=== PATIENT | male | born 1965 | race Hispanic/Latino ===

== ENCOUNTER 2018-05-17 14:14 | Inpatient (IN) | payer SELFPAY ==
[2018-05-17] MEDS ORDERED: fentaNYL Citrate/PF 2,000 MCG in Sodium Chloride 0.9% 60 ML IV SCH (14:26)
[2018-05-17] MEDS ORDERED: cefTRIAXone\\ROCEPHIN 1 GM VIAL ONE (14:30)
[2018-05-17] MEDS ORDERED: Pantoprazole 40 MG VIAL ONE (14:30)
[2018-05-17] MEDS ORDERED: Octreotide Acetate 50 MCG/ML AMP ONE (14:30)
[2018-05-17] MEDS ORDERED: Octreotide Acetate 1,250 MCG in Sodium Chloride 0.9% 250 ML 250 ML IVPB SCH (14:45)
[2018-05-17] MEDS ORDERED: Fentanyl 100 MCG/2 ML VIAL ONE (14:48)
[2018-05-17 15:25] LABS: Bilirubin Small (Negative); Blood, Urine Moderate (Negative); Clarity CLEAR (Clear); Glucose, Urine (Dipstick) Negative (Negative); Leukocyte Small (Negative); Nitrite Negative (Negative); Protein, Urine (Dipstick) 30 mg/dL (Neg-Trace); Specific Gravity, Urine 1.034 (1.002-1.036)
[2018-05-17 15:27] LABS: Actual Bicarbonate (HCO3a) 18.2 mEq/L (22-28); Analyzer IN Cardio ER; Base Excess (BEa) -5.4 mEq/L (-2.0 to +3.0); CO2 Tension 30.3 mmHg (35.0-45.0); Calcium, Ionized 1.09 mmol/L (1.12-1.30); Carboxyhemoglobin (COHb) 0.3 gm% (0.0-3.0); Hemoglobin (Hb) 13.8 g/dL (14.0-18.0); O2 Tension (PaO2) 111.1 mmHg (80.0-100.0); Potassium - ABG Lab 5.95 mmol/L (3.70-5.30)
[2018-05-17 15:28] LABS: Bacteria/HPF None Seen HPF (None Seen); Pathc Cast-AUWi Flag 1.16 (0-2.49); RBC/HPF GREATER THAN 50-TNTC HPF (0-3); Squamous Epithelial 0-3 HPF (0-3); WBC/HPF 0-3 HPF (0-3)
[2018-05-17 15:28] LABS: Puncture Site B
[2018-05-17 15:30] LABS: ALV-art Gradient 207.525 (0-20)
[2018-05-17 15:38] LABS: Crystals/HPF 2+ CA OXALATE HPF (Negative); Hyaline Casts/LPF 0-3 HYALINE CAST LPF (0-3 Hyaline)
[2018-05-17 15:43] LABS: INR-International Normal Ratio 1.5; PTT 35.1 SEC (22.9-36.1); Prothrombin Time 18.6 SEC (12.0-14.7)
[2018-05-17 15:50] LABS: ALT (SGPT) 42 U/L (8-55); AST (SGOT) 83 U/L (5-34); Albumin 2.4 g/dL (3.5-5.0); Alkaline Phosphatase 141 U/L (40-150); Anion Gap 15 mmol/L (10-20); BUN (Urea Nitrogen) 19 mg/dL (8.4-25.7); CK (CPK) 1249 U/L (30-200); Calc. Creatinine Clearance 0 mL/min (70-130); Calcium 8.2 mg/dL (7.8-10.44); Carbon Dioxide 16 mmol/L (22-29); Chloride 112 mmol/L (98-107); Estimated GFR-MDRD 82; Glucose 113 mg/dL (70-105); Lipase 38 U/L (8-78); Potassium 6.2 mmol/L (3.5-5.1); Protein, Total 6.4 g/dL (6.0-8.3); Sodium 137 mmol/L (136-145)
[2018-05-17 15:51] LABS: Acetaminophen Less than 6.0 mcg/mL (10.0-30.0); Alcohol Less than 10 mg/dL (Less than 10); Salicylate Less than 8.0 mg/dL (15.0-30.0)
[2018-05-17 15:54] LABS: #Lymphocytes 0.3 thou/uL (1.20-3.40); #Monocytes 0.6 thou/uL (0.11-0.59); #Neutrophils 3.9 thou/uL (1.40-6.50); %Basophils 0.4 % (0.0-1.0); %Eosinophils 0.5 % (0.0-10.0); %Lymphocytes 6.8 % (21.0-51.0); %Monocytes 11.3 % (0.0-10.0); Hemoglobin 13.4 g/dL (14.0-18.0); MDiff Complete? YES; Mean Corpuscular HGB CONC 34.4 g/dL (32.0-36.0); Mean Corpuscular Hemoglobin 33.5 pg (27.0-31.0); Mean Corpuscular Volume 97.3 fL (78.0-98.0); Mean Platelet Volume 8.3 fL (7.4-10.4); Ovalocytes SLIGHT = 2-5 cells (100X) (0-1/hpf); Platelet Count 49 thou/uL (130-400); Platelet Morphology Comment Appears Decreased; Polychromasia SLIGHT = 2-3 cells (100X) (0-2/hpf); RBC Distribution Width 13.6 % (11.5-14.5); Red Blood Cell (RBC) Count 4.01 mill/uL (4.70-6.10); Tear Drops SLIGHT = 2-5 cells (100X) (0-1/hpf); White Blood Cell (WBC) Count 4.8 thou/uL (4.8-10.8)
[2018-05-17] MEDS ORDERED: Calcium Chloride 1 GM/10 ML Abboject SYRINGE ONE (16:10)
[2018-05-17] MEDS ORDERED: Insulin Regular 300 UNITS/3 ML VIAL ONE (16:10)
[2018-05-17] MEDS ORDERED: Sodium Bicarb 50 MEQ/50 ML VIAL ONE ×2 (16:10→16:42)
[2018-05-17] MEDS ORDERED: Dextrose 50% Abboject 50 ML SYRINGE ONE (16:10)
--- NOTE | 2018-05-17 16:10 | RAD ---
PORTABLE AP CHEST RADIOGRAPH: Date: 05-17-18 History: Post intubation. Comparison: 05-17-18 at 11:39 a.m. FINDINGS: Endotracheal tube has been withdrawn, previously overlying the right mainstem bronchus and now overli es T4-5 level and above the level of the rigo. Nasogastric tube is again noted in place which cours es into the left upper quadrant but the tip is not imaged. Pleural and parenchymal changes are seen at the left lung base. There is suboptimal evaluation of the left lung base due to the large cardiac silhouette and portable technique. Findings could be related to left pleural effusion or atelectasis but pneumonia in the left lung base cannot be excluded. The right lung is clear. No other interval change. IMPRESSION: 1. Interval repositioning of the endotracheal tube which is now above the level of the rigo. 2. Pleural and parenchymal changes left lung base could be related to small left pleural effusion and atelectasis, but pneumonia at the left lung cannot be entirely excluded. POS: [facility]
[2018-05-17] MEDS ORDERED: Sodium Bicarb 50 MEQ/50 ML Abboject 8.4% SYRINGE ONE (16:42)
--- NOTE | 2018-05-17 17:14 | CON ---
DATE OF CONSULTATION: 05/17/2018 REASON FOR CONSULTATION: Hyperkalemia. HISTORY OF PRESENT ILLNESS: This is a very pleasant 52-year-old gentleman who presented to the hospital with altered mental status and syncope. The patient was noted to have a potassium of 6.2, and a stat consult was obtained. The patient has history of liver failure and BPH. PAST MEDICAL HISTORY: Liver failure and BPH. SOCIAL HISTORY: Unavailable. ALLERGIES: UNAVAILABLE. REVIEW OF SYSTEMS: Unavailable. PHYSICAL EXAMINATION: GENERAL: The patient is comatose. VITAL SIGNS: Afebrile, pulse 70, breathing 16, blood pressure 130/70. GENERAL APPEARANCE AND MENTAL STATUS: Fair. HEAD/NECK: Normocephalic. Atraumatic. EYES: EOMI. No deformity. EARS: Clear. No ulcers. NOSE: Intact. No lesions. MOUTH: Clear. No discharge. THROAT: Clear. No exudate. LUNGS: Clear. No crackles. CARDIAC: S1, S2. No rub. ABDOMEN: Benign. Bowel sounds positive. GENITALIA/RECTUM: Jiang absent. BACK/EXTREMITIES: Edema 0+. NEUROLOGICAL: Alert and motor intact. SKIN: LYMPHATICS: LABORATORY DATA: Labs show potassium of 6. ASSESSMENT AND PLAN: Chronic kidney disease stage 6 with multiorgan failure and acidosis. Plan bicarbonate. Anemia, stable. Medications based on glomerular filtration rate. Liver failure. Overall prognosis is poor. Job ID: [id number]
[2018-05-17 17:37] LABS: Amphetamine Not Detected (NotDetected); Barbiturates Screen Not Detected (NotDetected); Benzodiazepine Screen Not Detected (NotDetected); Cocaine Metabolite Screen Not Detected (NotDetected); Medtox Control Line Valid? VALID (VALID); Medtox Reader # READER 1; Methadone Not Detected (NotDetected); Methamphetamine Not Detected (NotDetected); Opiate Screen Not Detected (NotDetected); Oxycodone Screen Not Detected (NotDetected); Phencyclidine (PCP) Not Detected (NotDetected); THC/Cannabinoid Screen Not Detected (NotDetected); Tricyclic Screen Not Detected (NotDetected)
[2018-05-17 17:53] LABS: Anion Gap 11 mmol/L (10-20); BUN (Urea Nitrogen) 19 mg/dL (8.4-25.7); Calc. Creatinine Clearance 0 mL/min (70-130); Calcium 8.6 mg/dL (7.8-10.44); Carbon Dioxide 24 mmol/L (22-29); Chloride 113 mmol/L (98-107); Estimated GFR-MDRD Greater than 90; Glucose 123 mg/dL (70-105); Potassium 4.4 mmol/L (3.5-5.1); Sodium 144 mmol/L (136-145)
--- NOTE | 2018-05-17 18:12 | RAD ---
PORTABLE AP CHEST RADIOGRAPH: Date: 05-17-18 History: Central line insertion. Intubated. Comparison: 05-17-18 FINDINGS: Endotracheal tube and nasogastric tubes remain in place. A right internal jugular vein central venous catheter is noted in place with the tip overlying the expected location of the right atrium. No pneu mothorax is seen. There is suboptimal evaluation of the left lung base, but there is suggestion of pl eural and parenchymal changes at the left lung base which may be related to pleural effusion and atel ectasis. Right lung is clear. No other interval change. IMPRESSION: 1. Lines and tubes in place as described above. 2. Suboptimal evaluation of the left lung base. Recent CT. also obtained on 05-17-18. did not demons trate significant amount of pleural fluid at the left lung base, and findings at left lung base are l ikely related to atelectasis. POS: [facility]
[2018-05-17 18:43] VITALS: BMI 30.3
[2018-05-17] MEDS ORDERED: Ondansetron PF 4 MG/2 ML Vial IVP PRN (19:12)
[2018-05-17] MEDS ORDERED: Ondansetron ODT 4 MG TAB PO PRN (19:12)
[2018-05-17] MEDS ORDERED: Acetaminophen 650 MG Suppository PR PRN (19:12)
[2018-05-17] MEDS ORDERED: CCU Electrolyte Replacement 1 EACH FS ONE (19:13)
[2018-05-17] MEDS ORDERED: Ventilator Sedation Protocol 1 EACH FS ONE (19:13)
[2018-05-17] MEDS ORDERED: Propofol BOLUS 1,000 MG/100 ML VIAL IV PRN (19:16)
[2018-05-17] MEDS ORDERED: DISCONTINUE PREVIOUS NARCOTIC PAIN MEDICATIONS AND BENZODIAZEPINES FS SCH (19:16)
[2018-05-17] MEDS ORDERED: CCU ELECTROLYTE REPLACEMENT PROTOCOL FS PRN (19:16)
[2018-05-17] MEDS ORDERED: Potassium Phosphate 12 MMOL in Sodium Chloride 0.9% 250 ML 250 ML IV PRN (19:16)
[2018-05-17] MEDS ORDERED: Potassium Chloride 20 MEQ TAB PO PRN (19:16)
[2018-05-17] MEDS ORDERED: Magnesium Oxide 400 MG TAB PO PRN ×2 (19:16)
[2018-05-17] MEDS ORDERED: Potassium Phosphate 15 MMOL in Sodium Chloride 0.9% 250 ML 250 ML IV PRN (19:16)
[2018-05-17] MEDS ORDERED: Fentanyl BOLUS 250 ML IVPB PRN (19:16)
[2018-05-17] MEDS ORDERED: Magnesium 2 GM/NS 0.9% 100 ML 2 GM in Premix Bag 1 BAG IVPB PRN (19:16)
[2018-05-17] MEDS ORDERED: Potassium Chloride 40 MEQ in Sodium Chloride 0.9% 250 ML 250 ML IVPB PRN (19:16)
[2018-05-17] MEDS ORDERED: Propofol 1,000 MG/100 ML VIAL IV PRN (19:16)
[2018-05-17] MEDS ORDERED: Morphine 2 MG/ML SYRINGE SLOW IVP PRN (19:16)
[2018-05-17] MEDS ORDERED: Famotidine/PF 20 mg/2ml Vial SLOW IVP SCH (21:00)
[2018-05-17] MEDS: Sodium Chloride 0.9% 1,000 ML IV SCH (21:52)
--- NOTE | 2018-05-17 21:53 | HP ---
PRIMARY CARE PROVIDER: City call. CHIEF COMPLAINT: Altered mental status. HISTORY OF PRESENT ILLNESS: This is a 52-year-old male who presented to [facility] Emergency Department in transfer from the [place] [facility] after apparently presenting by EMS after family noted the patient altered and acting "weird." History was obtained after review of the [place] [facility] records as well as emergency room records from [facility] as the patient is currently on mechanical ventilation and obtunded. Family apparently reported that the patient was acting strange and has a history of cirrhosis. The patient was unable to be awakened in the photography instructor hours on 05/17/2018 at which point, EMS personnel were called to the home. The patient apparently is visiting from [place] over the last 10 days when his unresponsiveness was noted. The patient apparently had one episode of emesis on the scene, at which point, EMS personnel felt patient's airway was unprotected due to the altered mentation. The patient received IV succinylcholine and was placed on mechanical ventilation. The patient underwent suctioning of his airway with some emesis noted. However, remained on mechanical ventilation in the [place] [facility]. The patient received initial workup in the emergency room with screening metabolic survey showing evidence of metabolic acidosis with hyperkalemia with potassium level of 6.2. The patient received intravenous normal saline, sodium bicarbonate IV push as well as insulin and D50. The patient also received calcium chloride and was placed on octreotide and Protonix infusion. The patient also received lactulose 30 mL x1 dose due to elevated ammonia level. The patient was transferred to the Critical Care Unit on current mechanical ventilation for further evaluation. PAST MEDICAL HISTORY: 1. Hepatic cirrhosis, suspected. 2. History of alcohol use. PAST SURGICAL HISTORY: Status post umbilical hernia repair. CURRENT MEDICATIONS: 1. Spironolactone 25 mg p.o. daily. 2. Tamsulosin 0.4 mg p.o. daily. ALLERGIES: NO KNOWN DRUG ALLERGIES. FAMILY HISTORY: No inheritable diseases per family report. SOCIAL HISTORY: The patient resides in [place], visiting family in the [place], [place] area. No smoking or illicit drug use. Occasional alcohol use, but quantity is unknown. REVIEW OF SYSTEMS: Unobtainable due to the patient being on mechanical ventilation and obtunded. PHYSICAL EXAMINATION: VITAL SIGNS: Currently, blood pressure 107/63, pulse 73, respiratory rate 16, temperature 98 degrees Fahrenheit, O2 saturation 98% on 40% FiO2 by SIMV. GENERAL APPEARANCE: This is a 52-year-old male, on current mechanical ventilation, unresponsive. HEENT: Pupils are minimally reactive to light and accommodation. Sclerae with mild icterus. Mild conjunctival injection. Nares patent. OP is clear. ET tube and oral gastric tube in place. NECK: Supple. No cervical adenopathy. No thyromegaly. No carotid bruits. No JVD appreciated. Cervical spine with passive range of motion intact. CHEST: Lungs are clear to auscultation bilaterally. CARDIOVASCULAR: S1 and S2 without noted murmur, rub, or gallop. ABDOMEN: Protuberant with hernia palpated in the right upper quadrant. Midline abdominal scar noted. Landmarks are difficult to palpate due to patient's body habitus. EXTREMITIES: Warm and dry with fair turgor. No clubbing, cyanosis, or asymmetric edema appreciated. Pulses palpable distally at the dorsalis pedis, posterior tibial, and popliteal arteries bilaterally. Capillary refill less than 2 seconds. GENITOURINARY: Jiang catheter in place with [place] clear urine noted. NEUROLOGIC: The patient obtunded on current mechanical ventilation and sedation. PERTINENT LAB AND X-RAY FINDINGS: Sodium 144, potassium ranged between 4.4 to 6.2, CO2 ranged between 16 to 24, BUN 19, creatinine 0.87, estimated GFR greater than 90, calcium 8.6, serum ammonia level 238, AST 83, ALT 42, total bilirubin 3.0. Total CK 1249. BNP 20. Troponin I negative x1. TSH 1.25. Lipase 38. CBC showed a white blood cell count of 4.8, hemoglobin 13, hematocrit 39, and platelet count 49 with 81% neutrophils. PT 18.6, INR 1.5, PTT 35.1. ABG dated 05/17/2018 at 3:24 p.m. showed a pH 7.40, pCO2 30.3, PO2 111, bicarb 18.2, O2 saturation 98% on 50% FiO2 with mechanical rate of 16. Urine drug screen dated 05/17/2018, negative. Plasma alcohol level less than 10. Portable chest x-ray dated 05/17/2018 showed interval repositioning of the endotracheal tube now above the level of the rigo. Pleural and parenchymal changes of the left lung base. EKG dated 05/17/2018 by my interpretation shows normal sinus mechanism with heart rates in the 90s. Normal R-wave progression noted in the precordial leads. Left axis deviation noted. No acute ST-T wave changes appreciated. ASSESSMENT AND PLAN: 1. Acute metabolic encephalopathy. Suspect multifactorial in conjunction with hepatic encephalopathy. Continue supportive management. Lactulose 20 g per tube t.i.d. Repeat ammonia level in the a.m. We will review CT brain results when available. 2. Acute hypoxic respiratory failure. We will continue SIMV mechanical ventilation. Continue to titrate based on clinical response. We will consult Pulmonology Service for further management. Repeat portable chest x-ray in the a.m. 3. Hyperkalemia. Suspect secondary to metabolic derangement in conjunction with hepatic cirrhosis. Continue sodium bicarbonate infusion. Overall, potassium trend improved. Serial potassium monitoring. 4. Metabolic acidosis. Suspect secondary to hepatic encephalopathy as well as hepatic cirrhosis. Continue sodium bicarbonate as stated previously. 5. Hepatic cirrhosis. Suspected given the patient's history per family report. Continue supportive management as stated previously. 6. Prophylaxis. SCDs while in bed. Protonix infusion. Influenza pneumonia vaccination prior to discharge. 7. Code status: Full. 8. Surrogate medical decision maker not identified. 9. Total critical care time 45 minutes. Job ID: [id number]
[2018-05-17 21:55] LABS: Hemoglobin 13.2 g/dL (14.0-18.0)
--- NOTE | 2018-05-17 23:05 | CON ---
DATE OF CONSULTATION: 05/17/2018 REFERRING DOCTOR: Hospitalist Service. REASON FOR CONSULTATION: Hepatic encephalopathy. HISTORY OF PRESENT ILLNESS: Mr. Michael Denton is a 52-year-old [place] man, transferred from [facility] after he was found to be unresponsive and was intubated and transferred to [facility] in [place]. The patient was found to have markedly elevated ammonia of more than 200. The patient is on ventilator and is sedated. His vital signs are stable. His pulses are in 74 and blood pressure 150 to 170. He is not responding. The patient is on IV octreotide, IV pantoprazole, and also sodium bicarbonate because of hyperkalemia. On admission, his potassium level was 6.2 and it dropped to 4.4 after the IV bicarbonate. The patient has NG tube and also on the ventilator. There is no history available, no family member available. As per the information got from the ER doctor that he has history of liver cirrhosis and also history of BPH. No relevant history available. He has had a normal CBC, he is not anemic, his hemoglobin and hematocrit remained stable. There is no history of overt GI bleeding. No history of hematemesis or any melena. No relevant history. ALLERGIES: NOT KNOWN. PAST MEDICAL HISTORY: Medical illnesses: 1. Liver cirrhosis. 2. BPH. 3. He has had some abdominal surgery and he has a scar over the upper abdomen, the nature of the surgery is unclear. FAMILY HISTORY: Not obtained. REVIEW OF SYSTEMS: Not obtained. PHYSICAL EXAMINATION: GENERAL: He is on the vent and sedated. VITAL SIGNS: His pulse is around 75, blood pressure 150 to 170. CARDIOVASCULAR: First and second heart sounds heard. LUNGS: Clear to auscultation. ABDOMEN: Distended, but soft. He has a midline scar over the upper abdomen. He also has incisional hernia. No liver or spleen palpable. LABORATORY DATA: WBC 4,800, hemoglobin 13.4, hematocrit 39, MCV 97.3, platelet count is 49,000, polymorphs 81, lymphocytes 6, monocytes 11. CK 1249, mostly from rhabdomyolysis. Glucose is 123. Lytes; normal except potassium 6.2, dropping to 4.4 after IV bicarbonate. BUN is 19, creatinine 0.87. Albumin 2.4. Ammonia level is 238. CLINICAL IMPRESSION: A 52-year-old [place] male, seen in [facility] with syncope and unresponsiveness. He was found to have elevated ammonia. He is on the vent and he is on multiple IV drips including pantoprazole, octreotide, and also IV sodium bicarbonate. He does have a scar over the abdomen in the midline he has incisional hernia. RECOMMENDATIONS: 1. Start the patient on lactulose 60 mL stat, followed by 30 mL every 2 hours. 2. Ventilatory care support. 3. Continue octreotide and also pantoprazole. 4. Rectal tube to prevent fecal soiling. We will also obtain repeat ammonia level tomorrow. Job ID: [id number]
[2018-05-17] MEDS: Pantoprazole 80 MG in Sodium Chloride 0.9% 100 ML IVPB SCH (23:42)
--- NOTE | 2018-05-18 00:22 | CON ---
DATE OF CONSULTATION: 05/17/2018 SERVICE: Pulmonary Medicine. REASON FOR CONSULT: Respiratory failure. HISTORY OF PRESENT ILLNESS: The patient is a 52-year-old male with past medical history significant for heavy alcohol use and cirrhosis. He was in his usual state of health until he started having increasing mentation issues. He was brought to the emergency department but because of altered mentation and failure to protect airway, he was subsequently intubated. Ultimately, it was discovered that he had pneumonia level of over 230. He was initiated on lactulose. GI consultation was placed. We do appreciate those recommendations. He is on mechanical ventilation, currently breathing comfortably. There were no reports from family members of recent illness of fevers, chills, nausea, or vomiting. He has not had any recent rigors, cough, or sputum production. PAST MEDICAL HISTORY: 1. Cirrhosis. 2. Alcohol abuse. 3. Benign prostate hyperplasia. PAST SURGICAL HISTORY: Umbilical hernia repair. ALLERGIES: NO KNOWN DRUG ALLERGIES. MEDICATIONS: List of his inpatient medications was reviewed. No specific updates were made at this time. FAMILY HISTORY: Noncontributory. SOCIAL HISTORY: We know that the patient has a history of heavy alcohol use. He lives in [place], but was visiting some family members in [place]. He has no history of smoking or illicit drug use. REVIEW OF SYSTEMS: This cannot be obtained as the patient is currently encephalopathic. PHYSICAL EXAMINATION: VITAL SIGNS: Afebrile, pulse 84, blood pressure 119/89, respirations 10, saturation 96% on 37% FiO2 and a PEEP of 5. GENERAL: The patient is intubated. He is on no sedation, but currently encephalopathic. HEENT: Normocephalic and atraumatic. Sclerae white. Conjunctivae pink. Oral mucosa is moist without lesions. LUNGS: Decent air entry. Rhonchi and crackles are both present. There is no prolonged expiratory phase. HEART: Normal rate and regular. ABDOMEN: Soft. It is distended with ascites. There is an umbilical hernia present. There is no rebound or guarding present. Bowel sounds are hypoactive. GENITOURINARY. Jiang catheter in place. NEUROLOGIC: Grossly nonfocal. Withdraws from noxious stimuli to the upper and lower extremities. He is overbreathing the ventilator comfortably and has pupils that are equal, round, and reactive. LABORATORY DATA: WBC 4.8, hemoglobin 13.4, platelets 49,000. INR 1.5. PH 7.40, pCO2 of 30.3, PO2 of 111 on 50% FiO2 at that time. Basic metabolic profile is completely unremarkable with most recent potassium of 4.4. AST is elevated, total bilirubin is 3.0. Otherwise, liver function studies are unremarkable. CK 1250. BNP 20, troponin is unremarkable. TSH is 1.2. Urinalysis is unremarkable other than some hematuria. Urine drug screen is unremarkable. Alcohol, salicylates, and acetaminophen are all negative. IMAGING DATA: Chest x-ray demonstrates endotracheal tube, which is a touch deep. I am not certain whether this was repositioned in the emergency department. As such, we will leave it exactly where it is for the time being. Left pleural-parenchymal opacification is suggested on this film. There is an enteric catheter coursing midline below the level of the diaphragm. A right IJ terminates in good position. ASSESSMENT: 1. Acute hypoxic respiratory failure. 2. Metabolic encephalopathy. 3. Cirrhosis. 4. Alcohol abuse, suspected/presumed. DISCUSSION AND PLAN: We will leave the patient on mechanical ventilation. Multiple ventilator adjustments have been made in order to improve patient comfort. I agree with bicarb drip and empiric antibiotics. Pulmonary Critical Care will continue to follow along while the patient remains in this location. His barrier to extubation is his mental status change. Once this clears and his oxygen requirements do not increase, he will be a candidate for extubation. CRITICAL CARE TIME: 30 minutes. Job ID: [id number]
[2018-05-18 04:27] LABS: Band 14 % (5-11); Eosinophils 1 % (0-10); Hemoglobin 13.1 g/dL (14.0-18.0); Lymphocytes 16 % (21-51); MDiff Complete? YES; Mean Corpuscular HGB CONC 34.4 g/dL (32.0-36.0); Mean Corpuscular Hemoglobin 33.3 pg (27.0-31.0); Mean Corpuscular Volume 96.7 fL (78.0-98.0); Monocytes 8 % (0-10); Neutrophil 61 % (42-75); Platelet Count 57 thou/uL (130-400); Platelet Morphology Comment Appears Decreased; RBC Distribution Width 13.8 % (11.5-14.5); Red Blood Cell (RBC) Count 3.95 mill/uL (4.70-6.10)
[2018-05-18 04:32] LABS: Phosphorus 4.2 mg/dL (2.3-4.7)
[2018-05-18 04:33] LABS: ALT (SGPT) 45 U/L (8-55); AST (SGOT) 93 U/L (5-34); Albumin 2.6 g/dL (3.5-5.0); Alkaline Phosphatase 116 U/L (40-150); Anion Gap 12 mmol/L (10-20); BUN (Urea Nitrogen) 17 mg/dL (8.4-25.7); Calc. Creatinine Clearance 116 mL/min (70-130); Calcium 8.2 mg/dL (7.8-10.44); Carbon Dioxide 27 mmol/L (22-29); Chloride 111 mmol/L (98-107); Estimated GFR-MDRD 90; Globulin 3.5 g/dL (2.4-3.5); Glucose 122 mg/dL (70-105); Magnesium 1.8 mg/dL (1.6-2.6); Potassium 3.9 mmol/L (3.5-5.1); Protein, Total 6.1 g/dL (6.0-8.3); Sodium 146 mmol/L (136-145)
[2018-05-18 05:06] LABS: Folate (Folic Acid) 9.4 ng/mL (7.0-31.4)
[2018-05-18] MEDS: Sodium Chloride 0.9% 1,000 ML IV SCH (05:11)
[2018-05-18 06:36] LABS: Actual Bicarbonate (HCO3a) 26.7 mEq/L (22-28); Base Excess (BEa) 2.4 mEq/L (-2.0 to +3.0); CO2 Tension 40.1 mmHg (35.0-45.0); Carboxyhemoglobin (COHb) 1.7 gm% (0.0-3.0); Hemoglobin (Hb) 13.6 g/dL (14.0-18.0); O2 Tension (PaO2) 77.9 mmHg (80.0-100.0); Potassium - ABG Lab 3.94 mmol/L (3.70-5.30); pH, Arterial 7.44 (7.35-7.45)
[2018-05-18 06:37] LABS: Puncture Site RRA
[2018-05-18 06:38] LABS: ALV-art Gradient 135.785 (0-20)
[2018-05-18] MEDS: cefTRIAXone\\ROCEPHIN 2 GM in Sodium Chloride 0.9% 100 ML IVPB SCH (08:08)
--- NOTE | 2018-05-18 08:41 | RAD ---
ONE VIEW CHEST: HISTORY: Respiratory failure. Ventilated patient. COMPARISON: 05/17/2018. FINDINGS: Redemonstration of endotracheal tube, nasogastric tube, and right-sided central venous catheter. Enl arged cardiac silhouette. The pulmonary vessels and hilum are normal. Persistent opacification of t he left lung base which obscures the descending thoracic aorta. Interval resolution of a small left- sided pleural effusion. IMPRESSION: Interval resolution of small left-sided pleural effusion. Otherwise, no change. POS: [facility]
[2018-05-18] MEDS: Sodium Chloride 0.45% 1,000 ML IV SCH ×2 (09:35→22:46)
--- NOTE | 2018-05-18 10:26 | PRG ---
DATE OF SERVICE: 05/18/2018 SUBJECTIVE: A 52-year-old gentleman being seen for acute kidney injury. The patient is intubated. OBJECTIVE: GENERAL: The patient is resting well. VITAL SIGNS: Afebrile, pulse 80, breathing 16, blood pressure 126/80. GENERAL APPEARANCE AND MENTAL STATUS: Fair. HEAD/NECK: Normocephalic. Atraumatic. EYES: EOMI. No deformity. EARS: Clear. No ulcers. NOSE: Intact. No lesions. MOUTH: Clear. No discharge. THROAT: Clear. No exudate. LUNGS: Clear. No crackles. CARDIAC: S1, S2. No rub. ABDOMEN: Benign. Bowel sounds positive. GENITALIA/RECTUM: Jiang absent. BACK/EXTREMITIES: Edema 0+. NEUROLOGICAL: Alert and motor intact. The patient is resting. SKIN: LYMPHATICS: LABORATORY DATA: Labs show potassium is 3.9. ASSESSMENT AND PLAN: Acute kidney injury, resolved. Hyperkalemia, resolved. Metabolic acidosis, stable. I will sign off on this patient. Please reconsult as needed. Job ID: [id number]
--- NOTE | 2018-05-18 10:35 | PRG ---
DATE OF SERVICE: 05/18/2018 PULMONARY/CRITICAL CARE PROGRESS NOTE Thirty-five minutes critical time. SUBJECTIVE: This patient remains comatose on mechanical ventilation. His family was at the bedside and I did have the opportunity to speak to them about the situation. PHYSICAL EXAMINATION: VITAL SIGNS: The pulse is 104, blood pressure 120/76, O2 saturation 95%, respiratory rate 9, temperature 99.6. A 24-hour intake 550, output 565. HEENT: His sclerae are slightly icteric. Pupils 2 mm, reactive. Oropharynx clear. NECK: No JVD. LUNGS: Clear to auscultation anteriorly bilaterally CARDIOVASCULAR: S1 and S2, slightly tachycardic with 2/6 systolic murmur. ABDOMEN: Protuberant. He has a midline ventral hernia. EXTREMITIES: Without clubbing, cyanosis, or edema. IMAGING STUDIES: His chest x-ray shows some perihilar edema on the right. LABORATORY DATA: PH 7.44, pCO2 of 40, PO2 of 77, that was on pressure control ventilation with a rate of 7, inspiratory pressure of 11, FiO2 of 37%, PEEP 5. White blood cell count 8.0, hemoglobin 13, hematocrit 38.2, and platelet count 57. Sodium 146, potassium 3.9, chloride 111, CO2 of 27, BUN 17, creatinine 0.8, and glucose 122. Ammonia level is down to 114 from a high of 238. TSH 0.668. ASSESSMENT: 1. Hepatic encephalopathy. 2. Acute respiratory failure requiring mechanical ventilation. He is requiring mechanical ventilation because of his encephalopathy. 3. Cirrhosis. 4. Alcohol abuse. The family says his last drink was about 3 months ago, but he was told in [place] that he had serious liver disease. PLAN: 1. Continue with the lactulose. 2. Adjust mechanical ventilation. 3. Continue with the empiric antibiotics. 4. Change IV fluids. Job ID: [id number]
[2018-05-18] MEDS: Pantoprazole 80 MG in Sodium Chloride 0.9% 100 ML IVPB SCH ×2 (10:51→19:34)
--- NOTE | 2018-05-18 11:48 | PDOC.PN ---
- Subjective Encounter Start Date: 05/18/18 Encounter Start Time: 09:00 Patient seen and examined. pt is on vent, family bedside. No overnight events - Objective Resuscitation Status - Order Detail: 05/17/18 19:05 Resuscitation Status Routine Resuscitation Status: FULL: Full Resuscitation MAR Reviewed: Yes Vital Signs & Weight: Vital Signs (12 hours) Temp Pulse Resp BP Pulse Ox 05/18/18 11:16 103 H 128/77 05/18/18 10:00 8 L 05/18/18 08:00 10 L 05/18/18 07:47 103 H 111/83 05/18/18 07:20 97 05/18/18 07:00 99.6 F 05/18/18 06:00 9 L 05/18/18 04:00 98.9 F 10 L 05/18/18 02:37 82 108/75 05/18/18 02:00 12 05/18/18 00:00 98.7 F 12 Weight Weight 187 lb 13.341 oz Most Recent Monitor Data Heart Rate from ECG 102 NIBP 133/84 NIBP BP-Mean 100 Respiration from ECG 25 SpO2 94 I&O: 05/17/18 05/18/18 05/19/18 06:59 06:59 06:59 Intake Total 550 270 Output Total 565 100 Balance -15 170 Result Diagrams: 05/18/18 04:06 05/18/18 03:30 Radiology Reviewed by me: Yes (chest xray reviewed) EKG Reviewed by me: Yes (nsr) Phys Exam - Physical Examination Constitutional: NAD on vent HEENT: PERRLA, moist MMs icterus+ Neck: no JVD, supple Respiratory: no wheezing, no rales, no rhonchi Cardiovascular: RRR, no significant murmur, no rub Gastrointestinal: soft, positive bowel sounds distended Musculoskeletal: pulses present, edema present unable to assess due to intubated status Lymphatic: no nodes Deviation from normal: unable to assess Skin: no rash, normal turgor Dx/Plan (1) Acute hepatic encephalopathy Code(s): K72.00 - ACUTE AND SUBACUTE HEPATIC FAILURE WITHOUT COMA Status: Acute (2) Acute respiratory failure with hypoxemia Code(s): J96.01 - ACUTE RESPIRATORY FAILURE WITH HYPOXIA Status: Acute (3) Hyperkalemia Code(s): E87.5 - HYPERKALEMIA Status: Acute (4) Metabolic acidosis Code(s): E87.2 - ACIDOSIS Status: Acute (5) Thrombocytopenia Code(s): D69.6 - THROMBOCYTOPENIA, UNSPECIFIED Status: Acute (6) Cirrhosis of liver Code(s): K74.60 - UNSPECIFIED CIRRHOSIS OF LIVER Status: Chronic (7) Obesity (BMI 30-39.9) Code(s): E66.9 - OBESITY, UNSPECIFIED Status: Chronic - Plan cont current plan of care, plan discussed w/ family, continue antibiotics * medication reviewed as below * symptomatic treatment * continue vent as per pulmonary * continue rocephin * supportive care * GI, pulmonary on case. * continue lactulose Review of Systems - Review of Systems Other: unable to review due to intubated status - Medications/Allergies Allergies/Adverse Reactions: Allergies Allergy/AdvReac Type Severity Reaction Status Date / Time No Allergy Information Allergy Verified 05/17/18 18:57 Available Medications: Current Medications Acetaminophen (Tylenol) 650 mg OK Q4H PRN PRN Reason: Fever > 101 Pantoprazole Sodium 80 mg/ (Sodium Chloride) 100 mls @ 10 mls/hr IVPB INF [facility] Last Admin: 05/18/18 10:51 Dose: 100 mls Octreotide Acetate 1,250 mcg/ (Sodium Chloride) 251.25 mls @ 10.05 mls/hr IVPB INF [facility] Stop: 05/18/18 14:44 Fentanyl Citrate 2,000 mcg/ (Sodium Chloride) 100 mls @ 0 mls/hr IV INF [facility]; Protocol Stop: 06/16/18 19:16 Fentanyl Citrate (Fentanyl Bolus) 250 mls @ 0 mls/hr IVPB PRN PRN PRN Reason: Breakthrough pain/agitation Stop: 06/16/18 19:16 Potassium Chloride 40 meq/ (Sodium Chloride) 270 mls @ 135 mls/hr IVPB ASDIR PRN PRN Reason: FOR SERUM K+ 2.5 - 3.5 Potassium Chloride 40 meq/ (Device) 100 mls @ 50 mls/hr IVPB ASDIR PRN PRN Reason: FOR SERUM K+ 2.5 - 3.5 Magnesium Sulfate 1 gm/ Sodium (Chloride) 102 mls @ 102 mls/hr IV PRN PRN PRN Reason: MAG LEVEL 1.4 - 2.0 Magnesium Sulfate 2 gm/ Device 100 mls @ 100 mls/hr IVPB ASDIR PRN PRN Reason: MAGNESIUM < 1.4 Potassium Phosphate 9 mmol/ (Sodium Chloride) 103 mls @ 25.75 mls/hr IVPB ASDIR PRN PRN Reason: Phosphate 1.0-1.8 Potassium Phosphate 12 mmol/ (Sodium Chloride) 254 mls @ 63.5 mls/hr IV ASDIR PRN PRN Reason: Serum phosphate 0.5-0.9 Potassium Phosphate 15 mmol/ (Sodium Chloride) 255 mls @ 63.75 mls/hr IV ASDIR PRN PRN Reason: Serum Phos < 0.5 Ceftriaxone Sodium 2 gm/ (Sodium Chloride) 100 mls @ 200 mls/hr IVPB Q24HR [facility] Last Admin: 05/18/18 08:08 Dose: 100 mls Sodium Chloride (1/2 Normal Saline) 1,000 mls @ 75 mls/hr IV .[id number] [facility] Last Admin: 05/18/18 09:35 Dose: 1,000 mls Lactulose (Lactulose) 20 gm PER TUBE Q2HR [facility] Last Admin: 05/18/18 11:38 Dose: 20 gm Lorazepam (Ativan) 2 mg SLOW IVP Q1H PRN PRN Reason: Breakthrough agitation Stop: 06/16/18 19:16 Magnesium Oxide (Magnesium Oxide) 400 mg PO BIDPRN PRN PRN Reason: FOR SERUM MAG 1.4 - 2.0 Magnesium Oxide (Magnesium Oxide) 800 mg PO PRN PRN PRN Reason: FOR SERUM MAG < 1.4 Miscellaneous Medication (Phos-Nak) 1 pkt PO TIDPRN PRN PRN Reason: FOR PHOS LEVEL 1.0 - 1.8 Miscellaneous Medication (Phos-Nak) 2 pkt PO TIDPRN PRN PRN Reason: FOR PHOS LEVEL 0.5 - 1.0 Discontinue Previous Narcotic Pain Medications And Benzodiazepines 1 each FS .ONE [facility] Stop: 06/16/18 19:16 Ccu Electrolyte (Replacement Protocol) 0 each FS PRN PRN PRN Reason: FOR ELECTROLYTE REPLACEMENT Ondansetron HCl (Zofran Odt) 4 mg PO Q6H PRN PRN Reason: Nausea/Vomiting Ondansetron HCl (Zofran) 4 mg IVP Q6H PRN PRN Reason: Nausea/Vomiting Potassium Chloride (K-Dur) 40 meq PO ASDIR PRN PRN Reason: FOR SERUM K+ 2.5 - 3.5 Potassium Chloride (Klor-Con) 40 meq PER TUBE ASDIR PRN PRN Reason: FOR SERUM K+ 2.5-3.5 Propofol (Diprivan) 1,000 mg IV INF PRN; Protocol PRN Reason: TO ACHIEVE GOAL RASS Stop: 06/16/18 19:16 Propofol (Diprivan Bolus) 20 mg IV Q5MIN PRN PRN Reason: BREAKTHROUGH AGITATION Stop: 06/16/18 19:16
[2018-05-18] MEDS: fentaNYL Citrate/PF 2,000 MCG in Sodium Chloride 0.9% 60 ML IV SCH (13:48)
[2018-05-18] MEDS: Lorazepam 2 MG/ML VIAL SLOW IVP PRN (14:01)
--- NOTE | 2018-05-18 15:02 | PRG ---
DATE OF SERVICE: 05/18/2018 SUBJECTIVE: This is a 52-year-old Latin-[place]omin[place] male, who is visiting from [place] as family. Apparently, he came to this country 2 weeks ago. The patient was told to have liver disease from before. The patient was subsequently in the ER with elevated ammonia level and altered mental status. . He is on IV octreotide and pantoprazole. The patient has had no overt bleeding. No history of hematemesis or melena. Ammonia level was 230 yesterday, and he was on around the clock lactulose. Interestingly, he has had no stool at all. Ammonia level 114 today. His lytes are pretty much normal. His glucose is 122. OBJECTIVE: GENERAL: Does open his eyes. VITAL SIGNS: Stable. His pulse is normal. His blood pressure is 104/66. CARDIOVASCULAR: Regular rate and rhythm. LUNGS: Within normal limits. ABDOMEN: . LABORATORY DATA: Chem 7 is normal. BUN is 17, creatinine 0.88, glucose 122, calcium 8.2. Bilirubin is 3, AST is 93, ALT 45, albumin 2.6. Ammonia is dropping down to 114. IMPRESSION: 1. Liver cirrhosis, encephalopathy, on lactulose. 2. Respiratory failure, on ventilator therapy. 3. Hyperkalemia, resolved. RECOMMENDATIONS: 1. Continue lactulose. 2. Continue supportive care and ventilatory support. Job ID: [id number]
[2018-05-19 05:19] LABS: ALT (SGPT) 42 U/L (8-55); AST (SGOT) 88 U/L (5-34); Albumin 2.8 g/dL (3.5-5.0); Alkaline Phosphatase 106 U/L (40-150); Anion Gap 16 mmol/L (10-20); BUN (Urea Nitrogen) 27 mg/dL (8.4-25.7); Bilirubin, Total 6.5 mg/dL (0.2-1.2); Calc. Creatinine Clearance 69 mL/min (70-130); Calcium 8.1 mg/dL (7.8-10.44); Carbon Dioxide 23 mmol/L (22-29); Chloride 108 mmol/L (98-107); Estimated GFR-MDRD 50; Globulin 3.8 g/dL (2.4-3.5); Glucose 133 mg/dL (70-105); Magnesium 1.6 mg/dL (1.6-2.6); Phosphorus 3.4 mg/dL (2.3-4.7); Potassium 3.7 mmol/L (3.5-5.1); Protein, Total 6.6 g/dL (6.0-8.3); Sodium 143 mmol/L (136-145)
[2018-05-19 05:23] LABS: Band 3 % (5-11); Hemoglobin 14.3 g/dL (14.0-18.0); Lymphocytes 5 % (21-51); MDiff Complete? YES; Mean Corpuscular HGB CONC 34.6 g/dL (32.0-36.0); Mean Corpuscular Hemoglobin 33.5 pg (27.0-31.0); Mean Corpuscular Volume 96.7 fL (78.0-98.0); Mean Platelet Volume 8.3 fL (7.4-10.4); Monocytes 8 % (0-10); Neutrophil 84 % (42-75); Platelet Count 73 thou/uL (130-400); Platelet Morphology Comment Appears Decreased; RBC Distribution Width 13.8 % (11.5-14.5); RBC Morphology Normal; Red Blood Cell (RBC) Count 4.28 mill/uL (4.70-6.10); White Blood Cell (WBC) Count 9.7 thou/uL (4.8-10.8)
[2018-05-19 06:59] LABS: Actual Bicarbonate (HCO3a) 21.9 mEq/L (22-28); Base Excess (BEa) -2.8 mEq/L (-2.0 to +3.0); CO2 Tension 37.7 mmHg (35.0-45.0); Calcium, Ionized 1.06 mmol/L (1.12-1.30); Carboxyhemoglobin (COHb) 1.3 gm% (0.0-3.0); O2 Tension (PaO2) 80.1 mmHg (80.0-100.0); Potassium - ABG Lab 3.88 mmol/L (3.70-5.30); pH, Arterial 7.38 (7.35-7.45)
[2018-05-19] MEDS: Pantoprazole 80 MG in Sodium Chloride 0.9% 100 ML IVPB SCH (07:00)
[2018-05-19] MEDS: Lorazepam 2 MG/ML VIAL SLOW IVP PRN (07:01)
[2018-05-19] MEDS: cefTRIAXone\\ROCEPHIN 2 GM in Sodium Chloride 0.9% 100 ML IVPB SCH (07:52)
[2018-05-19 08:03] LABS: ALV-art Gradient 300.575 (0-20); Puncture Site RBA
[2018-05-19] MEDS: fentaNYL Citrate/PF 2,000 MCG in Sodium Chloride 0.9% 60 ML IV SCH (08:50)
--- NOTE | 2018-05-19 09:51 | PDOC.PN ---
- Subjective Encounter Start Date: 05/19/18 Encounter Start Time: 08:50 he has lot of gastric output, he has very little output from rectal tube, his abdomen is less distended today, he requires high flow oxygen - Objective Resuscitation Status - Order Detail: 05/17/18 19:05 Resuscitation Status Routine Resuscitation Status: FULL: Full Resuscitation MAR Reviewed: Yes Vital Signs & Weight: Vital Signs (12 hours) Temp Pulse Resp BP Pulse Ox 05/19/18 08:00 11 L 05/19/18 07:28 91 L 05/19/18 06:33 100 126/78 05/19/18 06:00 19 05/19/18 04:12 108 H 05/19/18 04:00 100.7 F H 13 05/19/18 02:00 13 05/19/18 00:57 108 H 125/78 05/19/18 00:00 100.9 F H 18 05/18/18 22:00 11 L Weight Admit Weight 187 lb Weight 187 lb 13.341 oz Most Recent Monitor Data Heart Rate from ECG 96 NIBP 145/82 NIBP BP-Mean 103 Respiration from ECG 13 SpO2 90 I&O: 05/18/18 05/19/18 05/20/18 06:59 06:59 06:59 Intake Total 550 3123 0 Output Total 565 1700 65 Balance -15 1423 -65 Result Diagrams: 05/19/18 04:49 05/19/18 04:49 Radiology Reviewed by me: Yes (chest xray reviewed) EKG Reviewed by me: Yes (nsr) Phys Exam - Physical Examination Constitutional: NAD intubated, NG tube with LIS HEENT: PERRLA icterus+ Neck: no JVD, supple Respiratory: no wheezing, no rhonchi coarse sound+ Cardiovascular: RRR, no significant murmur, no rub Gastrointestinal: soft, positive bowel sounds ascites+, distended Musculoskeletal: no edema, pulses present unable to assess as he is intubated Lymphatic: no nodes Deviation from normal: intubated Skin: normal turgor Dx/Plan (1) Acute hepatic encephalopathy Code(s): K72.00 - ACUTE AND SUBACUTE HEPATIC FAILURE WITHOUT COMA Status: Acute (2) Acute respiratory failure with hypoxemia Code(s): J96.01 - ACUTE RESPIRATORY FAILURE WITH HYPOXIA Status: Acute (3) Hyperkalemia Code(s): E87.5 - HYPERKALEMIA Status: Acute (4) Metabolic acidosis Code(s): E87.2 - ACIDOSIS Status: Acute (5) Thrombocytopenia Code(s): D69.6 - THROMBOCYTOPENIA, UNSPECIFIED Status: Acute (6) Cirrhosis of liver Code(s): K74.60 - UNSPECIFIED CIRRHOSIS OF LIVER Status: Chronic (7) Obesity (BMI 30-39.9) Code(s): E66.9 - OBESITY, UNSPECIFIED Status: Chronic - Plan cont current plan of care, plan discussed w/ family, continue antibiotics, respiratory therapy * continue supportive care * he is not ready for weaning * prognosis is poor * continue empiric antibiotics * GI, pulmonary following * discussed with family and updated condition to them. Review of Systems - Review of Systems Other: unable to review due to intubated status - Medications/Allergies Allergies/Adverse Reactions: Allergies Allergy/AdvReac Type Severity Reaction Status Date / Time No Allergy Information Allergy Verified 05/17/18 18:57 Available Medications: Current Medications Acetaminophen (Tylenol) 650 mg UT Q4H PRN PRN Reason: Fever > 101 Pantoprazole Sodium 80 mg/ (Sodium Chloride) 100 mls @ 10 mls/hr IVPB INF [facility] Last Admin: 05/19/18 07:00 Dose: 100 mls Fentanyl Citrate 2,000 mcg/ (Sodium Chloride) 100 mls @ 0 mls/hr IV INF [facility]; Protocol Stop: 06/16/18 19:16 Last Admin: 05/19/18 08:50 Dose: 100 mls Fentanyl Citrate (Fentanyl Bolus) 250 mls @ 0 mls/hr IVPB PRN PRN PRN Reason: Breakthrough pain/agitation Stop: 06/16/18 19:16 Potassium Chloride 40 meq/ (Sodium Chloride) 270 mls @ 135 mls/hr IVPB ASDIR PRN PRN Reason: FOR SERUM K+ 2.5 - 3.5 Potassium Chloride 40 meq/ (Device) 100 mls @ 50 mls/hr IVPB ASDIR PRN PRN Reason: FOR SERUM K+ 2.5 - 3.5 Magnesium Sulfate 1 gm/ Sodium (Chloride) 102 mls @ 102 mls/hr IV PRN PRN PRN Reason: MAG LEVEL 1.4 - 2.0 Magnesium Sulfate 2 gm/ Device 100 mls @ 100 mls/hr IVPB ASDIR PRN PRN Reason: MAGNESIUM < 1.4 Potassium Phosphate 9 mmol/ (Sodium Chloride) 103 mls @ 25.75 mls/hr IVPB ASDIR PRN PRN Reason: Phosphate 1.0-1.8 Potassium Phosphate 12 mmol/ (Sodium Chloride) 254 mls @ 63.5 mls/hr IV ASDIR PRN PRN Reason: Serum phosphate 0.5-0.9 Potassium Phosphate 15 mmol/ (Sodium Chloride) 255 mls @ 63.75 mls/hr IV ASDIR PRN PRN Reason: Serum Phos < 0.5 Ceftriaxone Sodium 2 gm/ (Sodium Chloride) 100 mls @ 200 mls/hr IVPB Q24HR [facility] Last Admin: 05/19/18 07:52 Dose: 100 mls Sodium Chloride (1/2 Normal Saline) 1,000 mls @ 75 mls/hr IV .[id number] [facility] Last Admin: 05/18/18 22:46 Dose: 1,000 mls Lactulose (Lactulose) 20 gm PER TUBE Q2HR [facility] Last Admin: 05/19/18 07:52 Dose: Not Given Lorazepam (Ativan) 2 mg SLOW IVP Q1H PRN PRN Reason: Breakthrough agitation Stop: 06/16/18 19:16 Last Admin: 05/19/18 07:01 Dose: 2 mg Magnesium Oxide (Magnesium Oxide) 400 mg PO BIDPRN PRN PRN Reason: FOR SERUM MAG 1.4 - 2.0 Magnesium Oxide (Magnesium Oxide) 800 mg PO PRN PRN PRN Reason: FOR SERUM MAG < 1.4 Miscellaneous Medication (Phos-Nak) 1 pkt PO TIDPRN PRN PRN Reason: FOR PHOS LEVEL 1.0 - 1.8 Miscellaneous Medication (Phos-Nak) 2 pkt PO TIDPRN PRN PRN Reason: FOR PHOS LEVEL 0.5 - 1.0 Discontinue Previous Narcotic Pain Medications And Benzodiazepines 1 each FS .ONE [facility] Stop: 06/16/18 19:16 Ccu Electrolyte (Replacement Protocol) 0 each FS PRN PRN PRN Reason: FOR ELECTROLYTE REPLACEMENT Ondansetron HCl (Zofran Odt) 4 mg PO Q6H PRN PRN Reason: Nausea/Vomiting Ondansetron HCl (Zofran) 4 mg IVP Q6H PRN PRN Reason: Nausea/Vomiting Potassium Chloride (K-Dur) 40 meq PO ASDIR PRN PRN Reason: FOR SERUM K+ 2.5 - 3.5 Potassium Chloride (Klor-Con) 40 meq PER TUBE ASDIR PRN PRN Reason: FOR SERUM K+ 2.5-3.5 Propofol (Diprivan) 1,000 mg IV INF PRN; Protocol PRN Reason: TO ACHIEVE GOAL RASS Stop: 06/16/18 19:16 Propofol (Diprivan Bolus) 20 mg IV Q5MIN PRN PRN Reason: BREAKTHROUGH AGITATION Stop: 06/16/18 19:16 Sodium Chloride (Flush - Normal Saline) 10 ml IVF Q12HR [facility] Last Admin: 05/19/18 07:53 Dose: 10 ml Sodium Chloride (Flush - Normal Saline) 10 ml IVF PRN PRN PRN Reason: Saline Flush
--- NOTE | 2018-05-19 10:24 | RAD ---
PORTABLE AP CHEST XRAY: DATE: 05/19/2018. History On ventilator. Followup evaluation. COMPARISON: 05/18/2018. FINDINGS: Endotracheal tube, nasogastric tube, and right subclavian central venous catheters remain in place an d unchanged in position. Cardiac silhouette and pulmonary vasculature are within normal limits. The re is mild prominence of the perihilar interstitial densities, but this has improved from the prior e xam. The opacification at the medial left lung base is again present but also mildly improved. Ther e is a question of a tiny right pleural effusion. No other interval change. IMPRESSION: 1. Moderate improvement in the prominence of the central pulmonary vasculature with mild improvement in aeration at the left lung base, but persistent parenchymal density is seen at the left lung base which may be related to either atelectasis or infiltrate. Continued followup is recommended. 2. Question of tiny right pleural effusion. POS: [facility]
--- NOTE | 2018-05-19 10:28 | PRG ---
DATE OF SERVICE: SUBJECTIVE: A 52-year-old gentleman, now intubated on the vent. He had large volume of gastric contents aspirated today, almost 2 L. Jaundiced, with abdominal distention. His son at the bedside, who speaks little [place]. He had no questions. OBJECTIVE: VITAL SIGNS: Blood pressure 145/82, sats are 92%, respirations 11, pulse 80. CHEST: Decreased breath sounds. No wheezing. CARDIAC: Sinus tach. ABDOMEN: Distended. EXTREMITIES: Trace edema. LABORATORY DATA: His pO2 is 80, pCO2 . His creatinine is 1.48, total bilirubin 6.5. Chest x-ray shows questionable bibasilar atelectatic changes. IMPRESSION: End-stage liver disease, cirrhosis, encephalopathy, respiratory failure, end-stage renal failure. PLAN: Continue lactulose. Continue supportive care. According to the nurses, he has not had a bowel movement, I am going to start low-dose Reglan. He is not weanable at this stage. One-half hour of critical care time. Job ID: [id number]
--- NOTE | 2018-05-19 12:15 | PRG ---
DATE OF SERVICE: 05/19/2018 SUBJECTIVE: Mr. Perales vomited this morning and had at least a couple of liters of suction by NG tube. He remained sedated on the ventilator. OBJECTIVE: VITAL SIGNS: Temperature 100.7 with a maximum of 100.9 last night, blood pressure is 118/79, pulse 92. GENERAL: He is sedated on the ventilator. He is jaundiced. LUNGS: Clear to auscultation bilaterally. HEART: Regular rate and rhythm. ABDOMEN: Soft. Currently, nondistended and now that he has had a large amount of fluid suctioned from the stomach. His bowel sounds are absent. EXTREMITIES: No lower extremity edema. IMPRESSION: 1. Cirrhosis, decompensated with hepatic encephalopathy, INR of 4.5 and bilirubin of 6.5. 2. Hepatic encephalopathy. His ammonia is down from 238 to 115; however, he is still currently sedated and his mental status could be well assessed. He had been on lactulose and required rectal tube placement. However, now he appears to have developed an ileus and has had a little stool output over the last couple of days. 3. Ileus. This could be related to the lactulose or general medical illness. For now, we will continue NG suction and continue supportive care. We can consider rectal lactulose administration depending on his clinical course . We will see what his ammonia is in the morning. We will give time for his ileus to resolve for now with OG suction. 4. Acute renal failure. His creatinine is increased from 0.88 to 1.48. Certainly, we have to consider risks for hepatorenal syndrome. I would give albumin today. 5. Fever. Given the vomiting, aspiration is a consideration. Urinalysis from 2 days ago was negative. Blood cultures from yesterday are negative so far. He is on ceftriaxone. RECOMMENDATIONS: 1. Continue OG suction. 2. Continue ceftriaxone. 3. Stop the pantoprazole drip. 4. We will add IV albumin today and we will have to follow the trend of his creatinine. 5. Check his ammonia in the morning. If it is rising, then give rectal lactulose if he does not have adequate stool output again. Job ID: [id number]
[2018-05-19] MEDS: Sodium Chloride 0.45% 1,000 ML IV SCH (12:17)
[2018-05-19] MEDS: Albumin 25% 25 GM/100 ML BOT IVPB SCH ×2 (12:27→17:48)
[2018-05-19] MEDS: Metoclopramide HCl 10 MG/2 ML VIAL IVP SCH ×2 (13:32→21:11)
[2018-05-20] MEDS: Albumin 25% 25 GM/100 ML BOT IVPB SCH ×3 (00:22→15:44)
[2018-05-20] MEDS: Sodium Chloride 0.45% 1,000 ML IV SCH ×2 (00:45→15:38)
[2018-05-20] MEDS: fentaNYL Citrate/PF 2,000 MCG in Sodium Chloride 0.9% 60 ML IV SCH (05:07)
[2018-05-20 06:06] LABS: INR-International Normal Ratio 2.4; Prothrombin Time 25.9 SEC (12.0-14.7)
[2018-05-20 06:20] LABS: ALT (SGPT) 30 U/L (8-55); AST (SGOT) 54 U/L (5-34); Albumin 3.1 g/dL (3.5-5.0); Alkaline Phosphatase 57 U/L (40-150); Anion Gap 10 mmol/L (10-20); BUN (Urea Nitrogen) 28 mg/dL (8.4-25.7); Calc. Creatinine Clearance 102 mL/min (70-130); Calcium 7.6 mg/dL (7.8-10.44); Carbon Dioxide 28 mmol/L (22-29); Chloride 106 mmol/L (98-107); Estimated GFR-MDRD 78; Globulin 2.4 g/dL (2.4-3.5); Glucose 114 mg/dL (70-105); Potassium 3.8 mmol/L (3.5-5.1); Protein, Total 5.5 g/dL (6.0-8.3); Sodium 140 mmol/L (136-145)
[2018-05-20] MEDS: Metoclopramide HCl 10 MG/2 ML VIAL IVP SCH ×3 (06:30→22:40)
[2018-05-20 06:51] LABS: Actual Bicarbonate (HCO3a) 24.6 mEq/L (22-28); CO2 Tension 39.8 mmHg (35.0-45.0); Calcium, Ionized 1.08 mmol/L (1.12-1.30); Carboxyhemoglobin (COHb) 0.5 gm% (0.0-3.0); Hemoglobin (Hb) 11.4 g/dL (14.0-18.0); O2 Tension (PaO2) 88.9 mmHg (80.0-100.0); Potassium - ABG Lab 3.79 mmol/L (3.70-5.30); pH, Arterial 7.41 (7.35-7.45)
[2018-05-20 06:54] LABS: Hemoglobin 10.8 g/dL (14.0-18.0); Mean Corpuscular Hemoglobin 33.6 pg (27.0-31.0); Mean Corpuscular Volume 96.2 fL (78.0-98.0); Mean Platelet Volume 7.9 fL (7.4-10.4); Platelet Count 44 thou/uL (130-400); RBC Distribution Width 13.6 % (11.5-14.5); Red Blood Cell (RBC) Count 3.21 mill/uL (4.70-6.10); White Blood Cell (WBC) Count 6.6 thou/uL (4.8-10.8)
[2018-05-20 06:55] LABS: Puncture Site RRA
[2018-05-20 06:56] LABS: Peep/CPAP 7.5 cmH2O
[2018-05-20] MEDS: cefTRIAXone\\ROCEPHIN 2 GM in Sodium Chloride 0.9% 100 ML IVPB SCH (08:04)
[2018-05-20] MEDS: Pantoprazole 40 MG VIAL IVP SCH (08:04)
[2018-05-20 08:12] LABS: Band 58 % (5-11); Lymphocytes 13 % (21-51); MDiff Complete? YES; Monocytes 4 % (0-10); Neutrophil 23 % (42-75); Ovalocytes SLIGHT = 2-5 cells (100X) (0-1/hpf); Platelet Morphology Comment Appears Decreased; Polychromasia SLIGHT = 2-3 cells (100X) (0-2/hpf); Reactive Lymphocytes 2 % (0-10); Toxic Granulation SLIGHT; Vacuoles SLIGHT
--- NOTE | 2018-05-20 08:45 | RAD ---
FRONTAL RADIOGRAPH CHEST PORTABLE SEMIUPRIGHT: 05/20/2018 HISTORY: Ventilated patient. COMPARISON: 05/19/2018 FINDINGS: The endotracheal tube terminates near the level of the clavicular heads. The nasogastric tube extend s into the upper abdomen. A right-sided vascular catheter is present, distal tip overlying the regio n of the right atrium. There is pulmonary vascular congestion. Nonspecific perihilar airspace disea se noted. Mild airspace disease suspected in the medial left base and in the right upper lobe. IMPRESSION: 1. Central airspace disease noted bilaterally, which may represent infectious pneumonitis or pulmona ry edema. 2. Lines and tubes as detailed above. POS: [facility]
--- NOTE | 2018-05-20 10:30 | PDOC.PN ---
- Subjective Encounter Start Date: 05/20/18 Encounter Start Time: 11:00 -: non-verbal Subjective: Patient still minimally responsive on the vent. - Objective Resuscitation Status - Order Detail: 05/17/18 19:05 Resuscitation Status Routine Resuscitation Status: FULL: Full Resuscitation MAR Reviewed: Yes Vital Signs & Weight: Vital Signs (12 hours) Temp Pulse Resp 05/20/18 10:00 11 L 05/20/18 09:56 82 05/20/18 08:00 9 L 05/20/18 07:00 99.0 F 05/20/18 06:31 89 05/20/18 06:00 12 05/20/18 04:00 98.9 F 12 05/20/18 02:00 12 05/20/18 00:00 99.1 F 12 Weight Admit Weight 187 lb Weight 187 lb 13.341 oz Most Recent Monitor Data Heart Rate from ECG 82 NIBP 133/74 NIBP BP-Mean 93 Respiration from ECG 12 SpO2 95 I&O: 05/19/18 05/20/18 05/21/18 06:59 06:59 06:59 Intake Total 3123 1264 100 Output Total 1700 1845 340 Balance 1423 -581 -240 Result Diagrams: 05/20/18 05:43 05/20/18 05:43 Additional Labs: Accuchecks 05/20/18 05:57 POC Glucose 112 H Phys Exam - Physical Examination HEENT: moist MMs Respiratory: no wheezing, no rales, no rhonchi Cardiovascular: RRR Distended, loud bowel sounds Musculoskeletal: pulses present minimal response to deep pain Deviation from normal: Minimally responsive on vent Dx/Plan (1) Acute hepatic encephalopathy Code(s): K72.00 - ACUTE AND SUBACUTE HEPATIC FAILURE WITHOUT COMA Status: Acute (2) Acute respiratory failure with hypoxemia Code(s): J96.01 - ACUTE RESPIRATORY FAILURE WITH HYPOXIA Status: Acute Comment: Intubated and Sedated (3) Hyperkalemia Code(s): E87.5 - HYPERKALEMIA Status: Acute (4) Metabolic acidosis Code(s): E87.2 - ACIDOSIS Status: Acute (5) Thrombocytopenia Code(s): D69.6 - THROMBOCYTOPENIA, UNSPECIFIED Status: Acute (6) Cirrhosis of liver Code(s): K74.60 - UNSPECIFIED CIRRHOSIS OF LIVER Status: Chronic (7) Obesity (BMI 30-39.9) Code(s): E66.9 - OBESITY, UNSPECIFIED Status: Chronic (8) Ileus Code(s): K56.7 - ILEUS, UNSPECIFIED Status: Acute - Plan cont current plan of care, continue antibiotics, respiratory therapy Palliative care discussing resuscitation status with family * . - Discharge Day Encounter end time: 11:30
[2018-05-20] MEDS ORDERED: Bisacodyl 10 MG SUPP PR SCH ×2 (14:45→22:00)
--- NOTE | 2018-05-20 15:36 | PRG ---
DATE OF SERVICE: 05/20/2018 SERVICE: Pulmonary Medicine. INTERVAL HISTORY: The patient is doing poorly from mentation standpoint. He has yet to really wake up from his encephalopathy. He cannot provide any additional elements of the history. He is on a little bit of fentanyl. This will be interrupted completely today. PHYSICAL EXAMINATION: VITAL SIGNS: Afebrile, pulse 74, blood pressure 122/64, respirations 17, and saturation 96% on 40% FiO2 and PEEP of 5. GENERAL: The patient is intubated. HEENT: Normocephalic and atraumatic. Sclerae white. Conjunctivae pink. Oral mucosa is moist without lesions. LUNGS: Decent air entry. No prolonged expiratory phase or wheezing is present. HEART: Normal rate regular. ABDOMEN: Soft. Distended. Ascites are present. There are bowel sounds which are active. : No Jiang. NEUROLOGIC: Grossly nonfocal. LABORATORY DATA: WBC 6.6, hemoglobin 10.8 and significantly dropped, platelets 44,000. Of note, all three cell lines fell off. Band count is 58% on top of 23 % neutrophils. INR 2.3. PH of 7.41, pCO2 of 39, PO2 of 89. Creatinine has improved to 1.0. Basic metabolic profile is otherwise unremarkable. Total bilirubin is trending down to 5.0. AST and ALT are abnormal. Ammonia is 156 and up- trending. Salicylates, acetaminophen, alcohol are negative. Urine drug screen is normal. Blood cultures x2 are unremarkable. IMAGING: Chest x-ray demonstrates pulmonary vascular congestion and bihilar disease. There is a right IJ, which terminates in the right atrium. Enteric catheter courses below the level of the diaphragm. Endotracheal tube remains in good position, likely left-sided pleural effusion is evident. ASSESSMENT: 1. Acute hypoxic respiratory failure. 2. Metabolic encephalopathy. 3. Cirrhosis, advanced. 4. Alcohol abuse. DISCUSSION AND PLAN: We will continue supportive care. Since he cannot tolerate p.o. lactulose, we will have to give it to him per rectum. Otherwise, supportive measures will be continued. If we cannot clear his encephalopathy through time , we may need to consider transitioning over to comfort care only. CRITICAL CARE TIME: 30 minutes. Job ID: [id number] [facility]
--- NOTE | 2018-05-20 15:58 | PRG ---
DATE OF SERVICE: 05/20/2018 SUBJECTIVE: This is a 52-year-old [place] male, who is visiting from [place] a couple of weeks ago. The patient has history of liver disease from before and liver cirrhosis. The patient was found to be in hepatic coma and was intubated. He is on the ventilator. The patient has been on the ventilator, sedated. He has been presented with nausea and vomiting, and NG/OG suction revealed more than 2 L of fluid. The patient has gastroparesis, ileus. He was started on IV Reglan yesterday. The NG tube output is very minimal. OBJECTIVE: VITAL SIGNS: Stable. He is afebrile. Pulse is 72, blood pressure 122/64. CARDIOVASCULAR: Within normal limits. LUNGS: Within normal limits. ABDOMEN: Remains distended. He has a midline scar and also frontal hernia. Abdomen is nontender. He still has no active bowel sounds. LABORATORY DATA: From today, CBC; WBC 6600, hemoglobin dropping down to 10.8, hematocrit 30.9, and platelet count is low at 44,000. His PT and INR, abnormal; PT is 25.9, INR is 2.4. His chemistry panel shows sodium of 140, potassium 3.8, chloride 106, bicarb 28, BUN is 28, creatinine . Glucose 114, bilirubin 5 mg, AST is 54, ALT 30, ammonia dropping down to 156. IMPRESSION: 1. Hepatic encephalopathy. 2. Severe ileus. 3. Liver cirrhosis. 4. Hyperkalemia, corrected. RECOMMENDATIONS: 1. Continue NG suction. 2. We will try Dulcolax suppositories twice a day. 3. Abdominal sonogram. Job ID: [id number]
[2018-05-20] MEDS ORDERED: Morphine 4 MG/ML VIAL SLOW IVP PRN (16:13)
[2018-05-21 04:04] LABS: #Eosinphils 0.1 thou/uL (0.0-0.7); #Lymphocytes 0.8 thou/uL (1.20-3.40); #Monocytes 0.9 thou/uL (0.11-0.59); #Neutrophils 4.5 thou/uL (1.40-6.50); %Basophils 0.5 % (0.0-1.0); %Eosinophils 2.2 % (0.0-10.0); %Lymphocytes 12.9 % (21.0-51.0); %Monocytes 13.4 % (0.0-10.0); Hemoglobin 11.5 g/dL (14.0-18.0); Mean Corpuscular HGB CONC 35.3 g/dL (32.0-36.0); Mean Corpuscular Hemoglobin 33.9 pg (27.0-31.0); Mean Corpuscular Volume 96.2 fL (78.0-98.0); Mean Platelet Volume 8.1 fL (7.4-10.4); Platelet Count 50 thou/uL (130-400); White Blood Cell (WBC) Count 6.4 thou/uL (4.8-10.8)
[2018-05-21 04:20] LABS: Anion Gap 12 mmol/L (10-20); BUN (Urea Nitrogen) 23 mg/dL (8.4-25.7); Calc. Creatinine Clearance 132 mL/min (70-130); Calcium 7.8 mg/dL (7.8-10.44); Carbon Dioxide 29 mmol/L (22-29); Chloride 105 mmol/L (98-107); Estimated GFR-MDRD Greater than 90; Glucose 94 mg/dL (70-105); Potassium 3.6 mmol/L (3.5-5.1); Sodium 142 mmol/L (136-145)
[2018-05-21 04:24] LABS: Phosphorus 1.1 mg/dL (2.3-4.7)
[2018-05-21] MEDS: Sodium Chloride 0.45% 1,000 ML IV SCH ×2 (06:10→08:58)
[2018-05-21] MEDS: Metoclopramide HCl 10 MG/2 ML VIAL IVP SCH ×2 (06:12→13:19)
--- NOTE | 2018-05-21 08:06 | RAD ---
FRONTAL VIEW CHEST: Date: 05/21/18 COMPARISON: Previous day. INDICATION: Ventilated patient, respiratory distress, follow-up. FINDINGS: Numerous extrinsic artifact limits detail. Supportive tubes and central vein catheter remain. There i s diffuse bilateral patchy parenchymal opacification of the pulmonary parenchyma with enlargement of the cardiac silhouette and pulmonary vasculature. Findings may be related to fluid overload. There is left basilar density which may represent pleural fluid and/or component of left basilar consolidatio n/atelectasis. Chest otherwise similar. IMPRESSION: 1. Diffuse pulmonary parenchymal opacities, when combined with additional findings, favor edema. 2. There is superimposed left basilar density. POS: [facility]
[2018-05-21] MEDS: cefTRIAXone\\ROCEPHIN 2 GM in Sodium Chloride 0.9% 100 ML IVPB SCH (08:58)
[2018-05-21] MEDS: Pantoprazole 40 MG VIAL IVP SCH (08:59)
--- NOTE | 2018-05-21 09:53 | PDOC.PN ---
- Subjective Encounter Start Date: 05/21/18 Encounter Start Time: 10:50 Subjective: No improvement overnight. Still on vent. Some agitation whenever sedation -: wears off. - Objective Resuscitation Status - Order Detail: 05/20/18 15:11 Resuscitation Status Routine Resuscitation Status: DNAR: NO Resuscitation Discussed with: Palliative Care discussion with and Family MAR Reviewed: Yes Vital Signs & Weight: Vital Signs (12 hours) Temp Pulse Resp BP 05/21/18 08:00 13 05/21/18 07:08 95 114/63 05/21/18 07:00 99.4 F 05/21/18 06:00 20 05/21/18 04:00 98.9 F 21 H 05/21/18 02:00 22 H 05/21/18 00:00 99.1 F 22 H 05/20/18 22:00 20 Weight Admit Weight 187 lb Weight 187 lb 13.341 oz Most Recent Monitor Data Heart Rate from ECG 89 NIBP 110/55 NIBP BP-Mean 73 Respiration from ECG 14 SpO2 95 I&O: 05/20/18 05/21/18 05/22/18 06:59 06:59 06:59 Intake Total 1264 1177 0 Output Total 1845 2200 180 Balance -581 -1023 -180 Result Diagrams: 05/21/18 03:45 05/21/18 03:45 Phys Exam - Physical Examination sedated on vent HEENT: moist MMs Respiratory: no wheezing, no rales, no rhonchi Cardiovascular: RRR distended, sparse bowel sounds Neurological: non-focal Deviation from normal: sedated on vent, minimal response to pain Dx/Plan (1) Acute hepatic encephalopathy Code(s): K72.00 - ACUTE AND SUBACUTE HEPATIC FAILURE WITHOUT COMA Status: Acute (2) Acute respiratory failure with hypoxemia Code(s): J96.01 - ACUTE RESPIRATORY FAILURE WITH HYPOXIA Status: Acute Comment: Intubated and Sedated (3) Hyperkalemia Code(s): E87.5 - HYPERKALEMIA Status: Acute (4) Metabolic acidosis Code(s): E87.2 - ACIDOSIS Status: Acute (5) Thrombocytopenia Code(s): D69.6 - THROMBOCYTOPENIA, UNSPECIFIED Status: Acute (6) Cirrhosis of liver Code(s): K74.60 - UNSPECIFIED CIRRHOSIS OF LIVER Status: Chronic (7) Obesity (BMI 30-39.9) Code(s): E66.9 - OBESITY, UNSPECIFIED Status: Chronic (8) Ileus Code(s): K56.7 - ILEUS, UNSPECIFIED Status: Acute - Plan cont current plan of care, respiratory therapy Patient with agitation off Fentanyl and Lorazepam, required dose of Lorazep -: am again yesterday afternoon. -: Family has made patient DNAR. -: Trying rectal Lactulose retention enemas * . - Discharge Day Encounter end time: 11:15
[2018-05-21] MEDS: Potassium Phosphate 9 MMOL in Sodium Chloride 0.9% 100 ML IVPB PRN (10:04)
[2018-05-21] MEDS ORDERED: Potassium Phosphate 30 MMOL in Sodium Chloride 0.9% 500 ML IVPB SCH (10:15)
--- NOTE | 2018-05-21 11:02 | PRG ---
DATE OF SERVICE: 05/21/2018 SERVICE: Pulmonary Medicine. INTERVAL HISTORY: The patient is doing okay from respiratory standpoint. Oxygen requirements remained quite elevated. There has been no interval change to his condition. Mentation villalobos, he is a touch more responsive, but remains in semicoma. PHYSICAL EXAMINATION: VITAL SIGNS: Afebrile, pulse 95, blood pressure 110/55, respirations 14, saturations 95% on 50% FiO2 and a PEEP of 7.5. HEENT: Normocephalic and atraumatic. Sclerae white. Conjunctivae pink. Oral mucosa is moist without lesions. LUNGS: Decent air entry. Extensive crackles are present. No prolonged expiratory phase or wheezing is appreciated. HEART: Normal rate, regular. ABDOMEN: Soft, nontender, and nondistended. Bowel sounds are positive. MUSCULOSKELETAL: No cyanosis or clubbing. There is diffuse 1 to 2+ pitting throughout. GENITOURINARY: Jiang catheter in place. NEUROLOGIC: Pupils are equal, round, and reactive. He withdraws from noxious stimuli. He also has grimace with noxious stimuli to the bilateral upper and lower extremities. He is not following any commands simple or otherwise, but does spontaneously open up his eyes. He is overbreathing the ventilator quite comfortably. He demonstrates improved cough today. LABORATORY DATA: WBC 6.4, hemoglobin 11.5, and platelets 50,000 and stable. INR 2.4 and trending upward. Basic metabolic profile is completely unremarkable, otherwise. Magnesium is 2.0, phosphorus 1.1. Salicylates, acetaminophen, alcohol are unremarkable. Urine drug screen is otherwise negative. Blood cultures are negative x2. IMAGING DATA: Chest x-ray demonstrates diffuse pulmonary opacifications throughout bilateral lung white. Left basilar density is also noted. An IJ is in the right atrium. The endotracheal tube remains 2 cm above the level of the rigo. There is an enteric catheter coursing well below the diaphragm. ASSESSMENT: 1. Acute hypoxic respiratory failure. 2. Metabolic encephalopathy. 3. Cirrhosis, advanced. 4. Alcohol abuse. DISCUSSION AND PLAN: I will replace the phosphorus. We will continue our p.r. lactulose until he can tolerate p.o. once again. I will start the patient on b.i.d. dosing of Lasix. We will continue IV fluids for the time being because I would like to try to dilute some of the toxins in his bloodstream. Pulmonary Critical Care will continue to follow closely. Critical care time: 30 minutes. Job ID: [id number] MTDD
[2018-05-21] MEDS: Lactulose 10 GM/15 ML Oral Solution PR SCH ×2 (12:19→21:43)
[2018-05-21] MEDS: Furosemide 40 MG/4 ML VIAL SLOW IVP SCH (13:19)
[2018-05-21] MEDS: Lorazepam 2 MG/ML VIAL SLOW IVP PRN (15:00)
[2018-05-21] MEDS ORDERED: Morphine 4 MG/ML VIAL SLOW IVP PRN (17:36)
[2018-05-22] MEDS: Lactulose 10 GM/15 ML Oral Solution PR SCH ×2 (04:21→19:33)
[2018-05-22 04:23] LABS: Anion Gap 14 mmol/L (10-20); BUN (Urea Nitrogen) 21 mg/dL (8.4-25.7); Calc. Creatinine Clearance 123 mL/min (70-130); Carbon Dioxide 24 mmol/L (22-29); Chloride 111 mmol/L (98-107); Estimated GFR-MDRD Greater than 90; Glucose 96 mg/dL (70-105); Sodium 146 mmol/L (136-145)
[2018-05-22 04:35] LABS: Potassium 2.9 mmol/L (3.5-5.1)
[2018-05-22] MEDS ORDERED: Potassium Phosphate 30 MMOL in Sodium Chloride 0.9% 500 ML IVPB SCH (06:00)
[2018-05-22] MEDS ORDERED: Potassium Chloride 40 MEQ in Premix Bag 1 BAG IVPB SCH (06:00)
[2018-05-22] MEDS: Dextrose 5% in Water 1,000 ML IV SCH ×2 (06:26→20:23)
[2018-05-22] MEDS: Furosemide 40 MG/4 ML VIAL SLOW IVP SCH ×2 (06:28→15:09)
--- NOTE | 2018-05-22 07:05 | PRG ---
DATE OF SERVICE: 05/22/2018 SERVICE: Pulmonary Medicine. INTERVAL HISTORY: The patient remains poorly responsive. He cannot provide any additional elements of the history. There were no reported events overnight. PHYSICAL EXAMINATION: VITAL SIGNS: Afebrile currently. His temperature max is 100.4, pulse 98, blood pressure 116/69, respirations 18, and saturation 96% on 43% FiO2, and a PEEP of 5. GENERAL: The patient is intubated. He is on no sedation. HEENT: Normocephalic and atraumatic. Sclerae white. Conjunctivae pink. Oral mucosa is moist without lesions. LUNGS: Decent air entry. Crackles are present. HEART: Normal rate and regular. ABDOMEN: Soft. Distended with ascites. There is no rebound or guarding present. Bowel sounds are present. MUSCULOSKELETAL: No cyanosis or clubbing. 1 to 2+ pitting throughout is present. : Jiang catheter in place. NEUROLOGIC: Grossly nonfocal. LABORATORY DATA: WBC 6.4, hemoglobin 11.5, and platelets 50,000. Potassium 2.9 and sodium 146. Basic metabolic profile is otherwise unremarkable. Creatinine is gently up trending to 0.83. Phosphorus is improved to 2.0. Blood cultures x2 are unremarkable. IMAGING STUDIES: Chest x-ray demonstrates endotracheal tube is in good position. Enteric catheter courses below the level of the diaphragm. There is a left- sided pleural-parenchymal change, consistent with a small effusion. Cephalization is noted consistent with pulmonary vascular congestion. ASSESSMENT: 1. Acute hypoxic respiratory failure. 2. Metabolic encephalopathy. 3. Cirrhosis, advanced. 4. Alcohol abuse. DISCUSSION AND PLAN: We will replace potassium and phosphorus today. His gut is now working again, he is starting to have some bowel movements. We will continue our frequent dose of lactulose. We will continue to diurese him until he returns to euvolemia. He remains critically ill. There is a possibility that he cannot recover from his liver injury. The family is aware of the bad prognosis. They are considering transitioning over to comfort measures. Critical care time: 30 minutes. Job ID: [id number] MTDD
--- NOTE | 2018-05-22 08:02 | RAD ---
CHEST 1 VIEW: Date: 05/22/18 HISTORY: Ventilated patient. COMPARISON: Radiograph prior day. FINDINGS: Right IJ central venous catheter is in place, tip in right atrium. Enteric tube tip below the diaphra gm, although out of field of view. Endotracheal tube tip is not well seen, although felt to reside above the rigo approximately 2.3 cm . Atelectatic changes in left lung base. There is a right upper lobe air space opacity. IMPRESSION: Right upper lobe air space opacity appears more confluent than the prior exam and may reflect underly ing infection. POS: [facility]
[2018-05-22] MEDS: cefTRIAXone\\ROCEPHIN 2 GM in Sodium Chloride 0.9% 100 ML IVPB SCH (10:34)
[2018-05-22] MEDS: Pantoprazole 40 MG VIAL IVP SCH (10:36)
[2018-05-22] MEDS: Lorazepam 2 MG/ML VIAL SLOW IVP PRN (15:09)
[2018-05-22] MEDS: Acetaminophen 650 MG/20.3 ML UDCUP PER TUBE PRN (20:21)
[2018-05-23] MEDS: Lorazepam 2 MG/ML VIAL SLOW IVP PRN ×2 (00:56→20:48)
[2018-05-23 05:33] LABS: Anion Gap 11 mmol/L (10-20); BUN (Urea Nitrogen) 13 mg/dL (8.4-25.7); Calc. Creatinine Clearance 118 mL/min (70-130); Calcium 7.6 mg/dL (7.8-10.44); Carbon Dioxide 29 mmol/L (22-29); Chloride 105 mmol/L (98-107); Estimated GFR-MDRD Greater than 90; Glucose 126 mg/dL (70-105); Sodium 142 mmol/L (136-145)
[2018-05-23 05:35] LABS: Phosphorus 1.8 mg/dL (2.3-4.7)
[2018-05-23 05:37] LABS: Potassium 2.8 mmol/L (3.5-5.1)
[2018-05-23] MEDS: Furosemide 40 MG/4 ML VIAL SLOW IVP SCH ×2 (05:41→15:21)
[2018-05-23] MEDS: Potassium Chloride 40 MEQ in Premix Bag 1 BAG IVPB PRN ×2 (05:45→20:48)
[2018-05-23] MEDS: Potassium Phosphate 9 MMOL in Sodium Chloride 0.9% 100 ML IVPB PRN (06:13)
[2018-05-23] MEDS: cefTRIAXone\\ROCEPHIN 2 GM in Sodium Chloride 0.9% 100 ML IVPB SCH (08:28)
[2018-05-23] MEDS: Pantoprazole 40 MG VIAL IVP SCH (08:29)
--- NOTE | 2018-05-23 08:30 | RAD ---
CHEST 1 VIEW: Date: 05/23/18 HISTORY: Ventilated patient. COMPARISON: Radiograph from prior day. FINDINGS: There are multifocal air space opacities. Exam is limited due to rightward patient rotation. Endotracheal tube tip above the rigo, approximately 1.8 cm. Enteric tube tip below the diaphragm, a lthough out of field of view. Right IJ central venous catheter in good position. IMPRESSION: Multifocal air space opacities have not significantly improved, concerning for infection or aspiratio n. POS: [facility]
[2018-05-23] MEDS: Dextrose 5% in Water 1,000 ML IV SCH ×2 (08:45→20:50)
--- NOTE | 2018-05-23 09:06 | PRG ---
DATE OF SERVICE: 05/23/2018 PULMONARY/CRITICAL CARE PROGRESS NOTE. TIME SPENT: 35 minutes of critical care time. SUBJECTIVE: The patient remains intubated on mechanical ventilation. According to nursing staff and family, he is beginning to wake up more and he is following some commands in Finnish. We could not get him to do that this morning as I examined him. OBJECTIVE: VITAL SIGNS: On exam, his temperature is 98.7 with a T-max of 101.4 yesterday. His pulse is 89, blood pressure 114/71. 24-hour intake 1793, output 3400. HEENT: Pupils are reactive. Sclerae are anicteric. Oropharynx clear. NECK: No JVD. LUNGS: Coarse breath sounds bilaterally. CARDIAC: S1 and S2, regular. ABDOMEN: Soft, slightly protuberant. EXTREMITIES: No clubbing or cyanosis. He has some generalized mild edema. LABORATORY DATA: Sodium 142, potassium 2.8, chloride 105, CO2 of 29, BUN 13, creatinine 0.8, glucose 126, calcium 7.6, and magnesium 1.8. ABG was not done today. His chest film demonstrates inappropriately placed ET tube above the rigo. He has some vascular congestion bilaterally. ASSESSMENT: 1. Acute hypoxic respiratory failure. 2. Encephalopathy. 3. Cirrhosis. 4. Alcohol abuse. 5. Fever. PLAN: 1. He is currently on IV antibiotics, but since the fever is breaking through, I will go ahead and have him re-cultured. 2. He is receiving potassium supplementation. He will need some IV magnesium, but that has not already been done today. 3. I will place him on spontaneous breathing and see how he does. Job ID: [id number]
[2018-05-23] MEDS ORDERED: Magnesium 2 GM/50 ML 2 GM in Premix Bag 1 BAG IVPB SCH (10:30)
--- NOTE | 2018-05-23 11:00 | PDOC.PN ---
- Subjective Encounter Start Date: 05/23/18 Encounter Start Time: 09:40 -: old records requested/rev pt is on vent, family bedside - Objective Resuscitation Status - Order Detail: 05/20/18 15:11 Resuscitation Status Routine Resuscitation Status: DNAR: NO Resuscitation Discussed with: Palliative Care discussion with and Family MAR Reviewed: Yes Vital Signs & Weight: Vital Signs (12 hours) Temp Pulse Resp 05/23/18 10:55 97 05/23/18 07:18 106 H 05/23/18 06:00 24 H 05/23/18 04:00 98.7 F 22 H 05/23/18 02:00 14 05/23/18 00:00 99.0 F 18 Weight Admit Weight 187 lb Weight 187 lb 13.341 oz Most Recent Monitor Data Heart Rate from ECG 89 NIBP 114/71 NIBP BP-Mean 85 Respiration from ECG 18 SpO2 99 I&O: 05/22/18 05/23/18 05/24/18 06:59 06:59 06:59 Intake Total 2203 1793 Output Total 3010 3400 220 Balance -807 -1607 -220 Result Diagrams: 05/21/18 03:45 05/23/18 04:56 Radiology Reviewed by me: Yes (chest xray reviewed) EKG Reviewed by me: Yes (nsr) Phys Exam - Physical Examination Constitutional: NAD intubated HEENT: PERRLA icterus+ Neck: no JVD, supple Respiratory: no wheezing, no rhonchi Cardiovascular: RRR, no significant murmur, no rub Gastrointestinal: soft, positive bowel sounds distended Musculoskeletal: no edema, pulses present unable to assess due to intubated status Lymphatic: no nodes Deviation from normal: unable to assess due to intubated status Dx/Plan (1) Acute hepatic encephalopathy Code(s): K72.00 - ACUTE AND SUBACUTE HEPATIC FAILURE WITHOUT COMA Status: Acute (2) Acute respiratory failure with hypoxemia Code(s): J96.01 - ACUTE RESPIRATORY FAILURE WITH HYPOXIA Status: Acute Comment: Intubated and Sedated (3) Metabolic acidosis Code(s): E87.2 - ACIDOSIS Status: Acute (4) Thrombocytopenia Code(s): D69.6 - THROMBOCYTOPENIA, UNSPECIFIED Status: Acute (5) Cirrhosis of liver Code(s): K74.60 - UNSPECIFIED CIRRHOSIS OF LIVER Status: Chronic (6) Obesity (BMI 30-39.9) Code(s): E66.9 - OBESITY, UNSPECIFIED Status: Chronic (7) Hypokalemia Code(s): E87.6 - HYPOKALEMIA Status: Acute (8) Hypophosphatemia Code(s): E83.39 - OTHER DISORDERS OF PHOSPHORUS METABOLISM Status: Acute (9) Ileus Code(s): K56.7 - ILEUS, UNSPECIFIED Status: Acute - Plan cont current plan of care, plan discussed w/ family, continue antibiotics * medication reviewed as below * symptomatic treatment * vent as per pulmonary * continue rocephin * supportive care * replace potassium * discussed with family and updated current condition. Review of Systems - Review of Systems Other: unable to review due to intubated status - Medications/Allergies Allergies/Adverse Reactions: Allergies Allergy/AdvReac Type Severity Reaction Status Date / Time No Allergy Information Allergy Verified 05/17/18 18:57 Available Medications: Current Medications Acetaminophen (Tylenol Elixir) 650 mg PER TUBE Q4H PRN PRN Reason: Headache/Fever or Pain Last Admin: 05/22/18 20:21 Dose: 650 mg Furosemide (Lasix) 40 mg SLOW IVP 0600,1400 GARRY Last Admin: 05/23/18 05:41 Dose: 40 mg Potassium Chloride 40 meq/ (Sodium Chloride) 270 mls @ 135 mls/hr IVPB ASDIR PRN PRN Reason: FOR SERUM K+ 2.5 - 3.5 Potassium Chloride 40 meq/ (Device) 100 mls @ 50 mls/hr IVPB ASDIR PRN PRN Reason: FOR SERUM K+ 2.5 - 3.5 Last Admin: 05/23/18 05:45 Dose: 100 mls Magnesium Sulfate 1 gm/ Sodium (Chloride) 102 mls @ 102 mls/hr IV PRN PRN PRN Reason: MAG LEVEL 1.4 - 2.0 Potassium Phosphate 9 mmol/ (Sodium Chloride) 103 mls @ 25.75 mls/hr IVPB ASDIR PRN PRN Reason: Phosphate 1.0-1.8 Last Admin: 05/23/18 06:13 Dose: 103 mls Potassium Phosphate 12 mmol/ (Sodium Chloride) 254 mls @ 63.5 mls/hr IV ASDIR PRN PRN Reason: Serum phosphate 0.5-0.9 Potassium Phosphate 15 mmol/ (Sodium Chloride) 255 mls @ 63.75 mls/hr IV ASDIR PRN PRN Reason: Serum Phos < 0.5 Ceftriaxone Sodium 2 gm/ (Sodium Chloride) 100 mls @ 200 mls/hr IVPB Q24HR [facility] Last Admin: 05/23/18 08:28 Dose: 100 mls Dextrose/Water (D5w) 1,000 mls @ 75 mls/hr IV .[id number] [facility] Last Admin: 05/23/18 08:45 Dose: 1,000 mls Magnesium Sulfate 2 gm/ Device 50 mls @ 100 mls/hr IVPB ASDIR [facility] Last Admin: 05/23/18 10:55 Dose: 50 mls Lactulose (Lactulose) 30 gm PO TID [facility] Last Admin: 05/23/18 08:29 Dose: 30 gm Lorazepam (Ativan) 2 mg SLOW IVP Q8H PRN PRN Reason: Agitation Last Admin: 05/23/18 00:56 Dose: 2 mg Magnesium Oxide (Magnesium Oxide) 400 mg PO BIDPRN PRN PRN Reason: FOR SERUM MAG 1.4 - 2.0 Magnesium Oxide (Magnesium Oxide) 800 mg PO PRN PRN PRN Reason: FOR SERUM MAG < 1.4 Miscellaneous Medication (Phos-Nak) 1 pkt PO TIDPRN PRN PRN Reason: FOR PHOS LEVEL 1.0 - 1.8 Miscellaneous Medication (Phos-Nak) 2 pkt PO TIDPRN PRN PRN Reason: FOR PHOS LEVEL 0.5 - 1.0 Morphine Sulfate (Morphine) 1 mg SLOW IVP Q2H PRN PRN Reason: Pain Discontinue Previous Narcotic Pain Medications And Benzodiazepines 1 each FS .ONE [facility] Stop: 06/16/18 19:16 Ccu Electrolyte (Replacement Protocol) 0 each FS PRN PRN PRN Reason: FOR ELECTROLYTE REPLACEMENT Ondansetron HCl (Zofran Odt) 4 mg PO Q6H PRN PRN Reason: Nausea/Vomiting Ondansetron HCl (Zofran) 4 mg IVP Q6H PRN PRN Reason: Nausea/Vomiting Pantoprazole Sodium (Protonix) 40 mg IVP DAILY [facility] Last Admin: 05/23/18 08:29 Dose: 40 mg Potassium Chloride (K-Dur) 40 meq PO ASDIR PRN PRN Reason: FOR SERUM K+ 2.5 - 3.5 Potassium Chloride (Klor-Con) 40 meq PER TUBE ASDIR PRN PRN Reason: FOR SERUM K+ 2.5-3.5 Sodium Chloride (Flush - Normal Saline) 10 ml IVF Q12HR GARRY Last Admin: 05/23/18 10:55 Dose: 10 ml Sodium Chloride (Flush - Normal Saline) 10 ml IVF PRN PRN PRN Reason: Saline Flush
[2018-05-23 15:44] LABS: Potassium 3.2 mmol/L (3.5-5.1)
[2018-05-23] MEDS: Acetaminophen 650 MG/20.3 ML UDCUP PER TUBE PRN (17:40)
[2018-05-24 05:31] LABS: Anion Gap 14 mmol/L (10-20); BUN (Urea Nitrogen) 13 mg/dL (8.4-25.7); Calc. Creatinine Clearance 93 mL/min (70-130); Calcium 7.6 mg/dL (7.8-10.44); Carbon Dioxide 25 mmol/L (22-29); Chloride 106 mmol/L (98-107); Estimated GFR-MDRD 70; Glucose 125 mg/dL (70-105); Potassium 4.2 mmol/L (3.5-5.1); Sodium 141 mmol/L (136-145)
[2018-05-24 05:39] LABS: Phosphorus 4.7 mg/dL (2.3-4.7)
[2018-05-24] MEDS: Furosemide 40 MG/4 ML VIAL SLOW IVP SCH ×2 (06:07→13:08)
[2018-05-24 06:09] LABS: Band 3 % (5-11); Eosinophils 1 % (0-10); Hemoglobin 11.9 g/dL (14.0-18.0); Lymphocytes 9 % (21-51); MDiff Complete? YES; Mean Corpuscular HGB CONC 35.5 g/dL (32.0-36.0); Mean Corpuscular Hemoglobin 33.8 pg (27.0-31.0); Mean Corpuscular Volume 95.3 fL (78.0-98.0); Mean Platelet Volume 7.9 fL (7.4-10.4); Monocytes 14 % (0-10); Neutrophil 73 % (42-75); Platelet Count 48 thou/uL (130-400); Platelet Morphology Comment Appears Decreased; Polychromasia SLIGHT = 2-3 cells (100X) (0-2/hpf); RBC Distribution Width 14.6 % (11.5-14.5); Red Blood Cell (RBC) Count 3.51 mill/uL (4.70-6.10); White Blood Cell (WBC) Count 7.1 thou/uL (4.8-10.8)
[2018-05-24] MEDS: Pantoprazole 40 MG VIAL IVP SCH (08:39)
[2018-05-24] MEDS: cefTRIAXone\\ROCEPHIN 2 GM in Sodium Chloride 0.9% 100 ML IVPB SCH (08:46)
--- NOTE | 2018-05-24 09:12 | PRG ---
DATE OF SERVICE: 05/24/2018 TIME SPENT: 35 minutes of critical care time. SUBJECTIVE: The patient remains intubated on mechanical ventilation. He will wake up, but will not follow any commands from me. Specifically, the family says he is intermittently following commands overnight. OBJECTIVE: VITAL SIGNS: Temperature is 99.3 with a T-max of 100.6, pulse 113, blood pressure 118/71. 24-hour intake 1797, output 2855. HEENT: Unremarkable. NECK: No JVD. LUNGS: Coarse breath sounds. CARDIAC: S1 and S2 regular. ABDOMEN: Soft. SKIN: Jaundiced. LABORATORY DATA: White blood cell count 7.1, hematocrit 33.5, platelet count 48. Sodium 141, potassium 4.2, chloride 106, CO2 of 25, BUN 30, creatinine 1.1, and glucose 125. ASSESSMENT: 1. This patient remains encephalopathic, this is presumed to be due to liver disease. 2. Acute respiratory failure, requiring mechanical ventilation. PLAN: 1. Continue spontaneous breathing and I think he can probably be extubated as soon as he is more awake. 2. We need to go ahead and start some enteral tube feeds since he is now tolerating oral lactulose. Job ID: [id number]
--- NOTE | 2018-05-24 09:27 | RAD ---
CHEST 1 VIEW: Date: 05/24/18 HISTORY: Ventilated patient. COMPARISON: Radiograph from prior day. FINDINGS: The endotracheal tube tip is just above the rigo approximately 1.8 cm. Right IJ central venous cath eter tip is in good position. Multifocal air space opacities are improving. Enteric tube tip is not w ell seen. IMPRESSION: Improving air space opacities. POS: [facility]
--- NOTE | 2018-05-24 11:25 | PDOC.PN ---
- Subjective Encounter Start Date: 05/24/18 Encounter Start Time: 09:00 Patient seen and examined. pt is intubated and family bedside, No overnight events - Objective Resuscitation Status - Order Detail: 05/20/18 15:11 Resuscitation Status Routine Resuscitation Status: DNAR: NO Resuscitation Discussed with: Palliative Care discussion with and Family MAR Reviewed: Yes Vital Signs & Weight: Vital Signs (12 hours) Temp Pulse Resp Pulse Ox 05/24/18 10:32 117 H 05/24/18 10:00 16 05/24/18 07:54 26 H 100 05/24/18 07:09 118 H 05/24/18 07:00 99.3 F 05/24/18 06:00 22 H 05/24/18 04:00 100.2 F H 26 H 05/24/18 02:19 105 H 05/24/18 01:46 18 05/24/18 00:00 99.0 F 18 Weight Admit Weight 187 lb Weight 187 lb 13.341 oz Most Recent Monitor Data Heart Rate from ECG 107 NIBP 117/72 NIBP BP-Mean 87 Respiration from ECG 17 SpO2 100 I&O: 05/23/18 05/24/18 05/25/18 06:59 06:59 06:59 Intake Total 1793 1797 Output Total 3400 3820 544 Balance -1607 -1058 -545 Result Diagrams: 05/24/18 04:50 05/24/18 04:50 Radiology Reviewed by me: Yes (chest xray reviewed) EKG Reviewed by me: Yes (nsr) Phys Exam - Physical Examination Constitutional: NAD HEENT: PERRLA NG tube+, intubated icterus+ Neck: no JVD, supple Respiratory: no wheezing, no rales, no rhonchi coarse sound+ Cardiovascular: RRR, no significant murmur, no rub Gastrointestinal: soft, positive bowel sounds mild ascites+, Musculoskeletal: no edema, pulses present unable to assess due to intubated status Lymphatic: no nodes Skin: no rash, normal turgor Dx/Plan (1) Acute hepatic encephalopathy Code(s): K72.00 - ACUTE AND SUBACUTE HEPATIC FAILURE WITHOUT COMA Status: Acute (2) Acute respiratory failure with hypoxemia Code(s): J96.01 - ACUTE RESPIRATORY FAILURE WITH HYPOXIA Status: Acute Comment: Intubated and Sedated (3) Metabolic acidosis Code(s): E87.2 - ACIDOSIS Status: Acute (4) Thrombocytopenia Code(s): D69.6 - THROMBOCYTOPENIA, UNSPECIFIED Status: Acute (5) Cirrhosis of liver Code(s): K74.60 - UNSPECIFIED CIRRHOSIS OF LIVER Status: Chronic (6) Obesity (BMI 30-39.9) Code(s): E66.9 - OBESITY, UNSPECIFIED Status: Chronic (7) Hypokalemia Code(s): E87.6 - HYPOKALEMIA Status: Acute (8) Hypophosphatemia Code(s): E83.39 - OTHER DISORDERS OF PHOSPHORUS METABOLISM Status: Acute (9) Ileus Code(s): K56.7 - ILEUS, UNSPECIFIED Status: Acute - Plan cont current plan of care, plan discussed w/ family, continue antibiotics, respiratory therapy * medication reviewed as below * symptomatic treatment * vent as per pulmonary * weaning as per pulmonary * discussed with family bedside * start tube feeding. Review of Systems - Review of Systems Other: unable to review due to intubated status - Medications/Allergies Allergies/Adverse Reactions: Allergies Allergy/AdvReac Type Severity Reaction Status Date / Time No Allergy Information Allergy Verified 05/17/18 18:57 Available Medications: Current Medications Acetaminophen (Tylenol Elixir) 650 mg PER TUBE Q4H PRN PRN Reason: Headache/Fever or Pain Last Admin: 05/23/18 17:40 Dose: 650 mg Furosemide (Lasix) 40 mg SLOW IVP 0600,1400 GARRY Last Admin: 05/24/18 06:07 Dose: 40 mg Potassium Chloride 40 meq/ (Sodium Chloride) 270 mls @ 135 mls/hr IVPB ASDIR PRN PRN Reason: FOR SERUM K+ 2.5 - 3.5 Potassium Chloride 40 meq/ (Device) 100 mls @ 50 mls/hr IVPB ASDIR PRN PRN Reason: FOR SERUM K+ 2.5 - 3.5 Last Admin: 05/23/18 20:48 Dose: 100 mls Magnesium Sulfate 1 gm/ Sodium (Chloride) 102 mls @ 102 mls/hr IV PRN PRN PRN Reason: MAG LEVEL 1.4 - 2.0 Potassium Phosphate 9 mmol/ (Sodium Chloride) 103 mls @ 25.75 mls/hr IVPB ASDIR PRN PRN Reason: Phosphate 1.0-1.8 Last Admin: 05/23/18 06:13 Dose: 103 mls Potassium Phosphate 12 mmol/ (Sodium Chloride) 254 mls @ 63.5 mls/hr IV ASDIR PRN PRN Reason: Serum phosphate 0.5-0.9 Potassium Phosphate 15 mmol/ (Sodium Chloride) 255 mls @ 63.75 mls/hr IV ASDIR PRN PRN Reason: Serum Phos < 0.5 Ceftriaxone Sodium 2 gm/ (Sodium Chloride) 100 mls @ 200 mls/hr IVPB Q24HR [facility] Last Admin: 05/24/18 08:46 Dose: 100 mls Dextrose/Water (D5w) 1,000 mls @ 75 mls/hr IV .[id number] [facility] Last Admin: 05/23/18 20:50 Dose: 1,000 mls Magnesium Sulfate 2 gm/ Device 50 mls @ 100 mls/hr IVPB ASDIR [facility] Last Admin: 05/23/18 10:55 Dose: 50 mls Lactulose (Lactulose) 30 gm PO TID [facility] Last Admin: 05/24/18 08:39 Dose: 30 gm Lorazepam (Ativan) 2 mg SLOW IVP Q8H PRN PRN Reason: Agitation Last Admin: 05/23/18 20:48 Dose: 2 mg Magnesium Oxide (Magnesium Oxide) 400 mg PO BIDPRN PRN PRN Reason: FOR SERUM MAG 1.4 - 2.0 Magnesium Oxide (Magnesium Oxide) 800 mg PO PRN PRN PRN Reason: FOR SERUM MAG < 1.4 Miscellaneous Medication (Phos-Nak) 1 pkt PO TIDPRN PRN PRN Reason: FOR PHOS LEVEL 1.0 - 1.8 Miscellaneous Medication (Phos-Nak) 2 pkt PO TIDPRN PRN PRN Reason: FOR PHOS LEVEL 0.5 - 1.0 Morphine Sulfate (Morphine) 1 mg SLOW IVP Q2H PRN PRN Reason: Pain Discontinue Previous Narcotic Pain Medications And Benzodiazepines 1 each FS .ONE [facility] Stop: 06/16/18 19:16 Ccu Electrolyte (Replacement Protocol) 0 each FS PRN PRN PRN Reason: FOR ELECTROLYTE REPLACEMENT Ondansetron HCl (Zofran Odt) 4 mg PO Q6H PRN PRN Reason: Nausea/Vomiting Ondansetron HCl (Zofran) 4 mg IVP Q6H PRN PRN Reason: Nausea/Vomiting Pantoprazole Sodium (Protonix) 40 mg IVP DAILY [facility] Last Admin: 05/24/18 08:39 Dose: 40 mg Potassium Chloride (K-Dur) 40 meq PO ASDIR PRN PRN Reason: FOR SERUM K+ 2.5 - 3.5 Potassium Chloride (Klor-Con) 40 meq PER TUBE ASDIR PRN PRN Reason: FOR SERUM K+ 2.5-3.5 Sodium Chloride (Flush - Normal Saline) 10 ml IVF Q12HR [facility] Last Admin: 05/24/18 08:39 Dose: 10 ml Sodium Chloride (Flush - Normal Saline) 10 ml IVF PRN PRN PRN Reason: Saline Flush
[2018-05-24] MEDS ORDERED: Pancrelipase DR 12000 1 CAP FS PRN (11:52)
[2018-05-24] MEDS ORDERED: Sodium Bicarbonate Tab 325 MG TAB PER TUBE PRN (11:52)
[2018-05-24] MEDS: Acetaminophen 650 MG/20.3 ML UDCUP PER TUBE PRN (12:30)
[2018-05-24] MEDS: Dextrose 5% in Water 1,000 ML IV SCH (13:09)
[2018-05-25 04:40] LABS: Anion Gap 13 mmol/L (10-20); BUN (Urea Nitrogen) 15 mg/dL (8.4-25.7); Calc. Creatinine Clearance 103 mL/min (70-130); Calcium 7.7 mg/dL (7.8-10.44); Carbon Dioxide 26 mmol/L (22-29); Chloride 102 mmol/L (98-107); Estimated GFR-MDRD 79; Glucose 138 mg/dL (70-105); Sodium 138 mmol/L (136-145)
[2018-05-25 04:45] LABS: Phosphorus 2.1 mg/dL (2.3-4.7)
[2018-05-25 04:53] LABS: Potassium 2.8 mmol/L (3.5-5.1)
[2018-05-25] MEDS: Furosemide 40 MG/4 ML VIAL SLOW IVP SCH ×2 (05:08→14:33)
[2018-05-25] MEDS: Dextrose 5% in Water 1,000 ML IV SCH (05:09)
[2018-05-25] MEDS ORDERED: Potassium Phosphate 30 MMOL in Sodium Chloride 0.9% 500 ML IVPB SCH (07:45)
--- NOTE | 2018-05-25 08:57 | RAD ---
CHEST 1 VIEW: HISTORY: Chest pain. COMPARISON: Radiograph of prior day. FINDINGS: The patient was intubated with endotracheal tube tip above the rigo approximately 1.8 cm. Right IJ central venous catheter is in good position. The enteric tube tip is below the diaphragm out of the field of view. No pneumothorax. The airspace opacity continues to improve. IMPRESSION: Continued improvement to airspace opacities. POS: CET
[2018-05-25] MEDS: Pantoprazole 40 MG VIAL IVP SCH (09:05)
[2018-05-25] MEDS: cefTRIAXone\\ROCEPHIN 2 GM in Sodium Chloride 0.9% 100 ML IVPB SCH (09:13)
[2018-05-25] MEDS ORDERED: Magnesium Sulfate 4 GM in Sodium Chloride 0.9% 250 ML 250 ML IVPB SCH (10:15)
--- NOTE | 2018-05-25 11:41 | PRG ---
DATE OF SERVICE: 05/25/2018 SERVICE: Pulmonary Medicine. INTERVAL HISTORY: The patient's mentation continues to improve. He is following some simple commands today. There were no events overnight. PHYSICAL EXAMINATION: VITAL SIGNS: Afebrile, pulse at 95, blood pressure 103/62, respirations 30, saturation 96% on 31% FiO2 and PEEP of 5. GENERAL: The patient is awake and alert, in no apparent distress. LUNGS: Decent air entry. Dependent crackles are minimal. HEART: Normal rate, regular. ABDOMEN: Soft, nontender, and nondistended. Bowel sounds are positive. MUSCULOSKELETAL: No cyanosis or clubbing. There is no pitting in the bilateral lower extremities. NEUROLOGIC: Grossly nonfocal. LABORATORY DATA: Magnesium 1.5, potassium 3.0. Basic metabolic profile is otherwise unremarkable. Phosphorus 2.1. Microbiology is negative today except for Pseudomonas growing in the sputum, which is a pansensitive organism. Blood cultures x4, are negative. IMAGING: Chest x-ray demonstrates continued improvement in the bilateral airspace opacifications. Endotracheal tube is in good position. There is an enteric catheter coursing below the level of the diaphragm. No significant effusions are noted. ASSESSMENT: 1. Acute hypoxic respiratory failure. 2. Metabolic encephalopathy, resolving. 3. Cirrhosis, advanced. 4. Alcohol abuse. DISCUSSION AND PLAN: We will once again replace potassium, phosphorus, and magnesium. Pulmonary Critical Care will continue to follow along. We will put him on a spontaneous breathing trial. If he meets criteria, extubation will be considered. CRITICAL CARE TIME: 30 minutes. Job ID: [id number]
--- NOTE | 2018-05-25 13:42 | PDOC.PN ---
- Subjective Encounter Start Date: 05/25/18 Encounter Start Time: 09:45 Patient seen and examined. pt is on vent, awake, No overnight events - Objective Resuscitation Status - Order Detail: 05/20/18 15:11 Resuscitation Status Routine Resuscitation Status: DNAR: NO Resuscitation Discussed with: Palliative Care discussion with and Family MAR Reviewed: Yes Vital Signs & Weight: Vital Signs (12 hours) Temp Pulse Resp BP Pulse Ox 05/25/18 12:00 99.0 F 98 05/25/18 08:00 99.7 F H 15 100 05/25/18 07:13 102 H 136/88 05/25/18 06:00 18 05/25/18 04:00 98.4 F 16 05/25/18 03:09 98 05/25/18 02:00 18 Weight Admit Weight 187 lb Weight 187 lb 13.341 oz Most Recent Monitor Data Heart Rate from ECG 89 NIBP 105/63 NIBP BP-Mean 77 Respiration from ECG 18 SpO2 98 I&O: 05/24/18 05/25/18 05/26/18 06:59 06:59 06:59 Intake Total 1797 2991 420 Output Total 2855 2107 697 Balance -1058 884 -277 Result Diagrams: 05/24/18 04:50 05/25/18 08:56 Radiology Reviewed by me: Yes (chest xray reviewed) EKG Reviewed by me: Yes (nsr) Phys Exam - Physical Examination Constitutional: NAD on vent HEENT: PERRLA Icterus+ Neck: no JVD, supple Respiratory: no wheezing, no rales, no rhonchi coarse sound+ Cardiovascular: RRR, no significant murmur, no rub Gastrointestinal: soft, no distention, positive bowel sounds Musculoskeletal: no edema, pulses present Neurological: moves all 4 limbs Lymphatic: no nodes Skin: no rash, normal turgor Dx/Plan (1) Acute hepatic encephalopathy Code(s): K72.00 - ACUTE AND SUBACUTE HEPATIC FAILURE WITHOUT COMA Status: Acute (2) Acute respiratory failure with hypoxemia Code(s): J96.01 - ACUTE RESPIRATORY FAILURE WITH HYPOXIA Status: Acute Comment: Intubated and Sedated (3) Metabolic acidosis Code(s): E87.2 - ACIDOSIS Status: Acute (4) Thrombocytopenia Code(s): D69.6 - THROMBOCYTOPENIA, UNSPECIFIED Status: Acute (5) Cirrhosis of liver Code(s): K74.60 - UNSPECIFIED CIRRHOSIS OF LIVER Status: Chronic (6) Obesity (BMI 30-39.9) Code(s): E66.9 - OBESITY, UNSPECIFIED Status: Chronic (7) Hypokalemia Code(s): E87.6 - HYPOKALEMIA Status: Acute (8) Hypophosphatemia Code(s): E83.39 - OTHER DISORDERS OF PHOSPHORUS METABOLISM Status: Acute (9) Ileus Code(s): K56.7 - ILEUS, UNSPECIFIED Status: Acute - Plan cont current plan of care, plan discussed w/ family, continue antibiotics, respiratory therapy * sponteneous breathing trial today and if successful, then probable extubation * replace potassium, phosphate and magnesium * medication reviewed as below * symptomatic treatment. * continue levaquin, added today as per pulmonary Review of Systems - Review of Systems Other: unable to review due to intubated status - Medications/Allergies Allergies/Adverse Reactions: Allergies Allergy/AdvReac Type Severity Reaction Status Date / Time No Allergy Information Allergy Verified 05/17/18 18:57 Available Medications: Current Medications Acetaminophen (Tylenol Elixir) 650 mg PER TUBE Q4H PRN PRN Reason: Headache/Fever or Pain Last Admin: 05/24/18 12:30 Dose: 650 mg Lipase/Protease/Amylase ([place] [id number]) 1 cap FS .PER PROTOCOL PRN PRN Reason: TUBE OCCLUSION PROTOCOL Furosemide (Lasix) 40 mg SLOW IVP 0600,1400 [facility] Last Admin: 05/25/18 05:08 Dose: 40 mg Magnesium Sulfate 4 gm/ Sodium (Chloride) 258 mls @ 86 mls/hr IVPB NOW [facility] Stop: 05/25/18 16:00 Last Admin: 05/25/18 12:00 Dose: 258 mls Levofloxacin 750 mg/ Device 150 mls @ 100 mls/hr IVPB Q24HR [facility] Stop: 05/30/18 12:01 Last Admin: 05/25/18 12:03 Dose: 150 mls Lactulose (Lactulose) 30 gm PO TID [facility] Last Admin: 05/25/18 09:11 Dose: 30 gm Discontinue Previous Narcotic Pain Medications And Benzodiazepines 1 each FS .ONE [facility] Stop: 06/16/18 19:16 Ondansetron HCl (Zofran Odt) 4 mg PO Q6H PRN PRN Reason: Nausea/Vomiting Ondansetron HCl (Zofran) 4 mg IVP Q6H PRN PRN Reason: Nausea/Vomiting Pantoprazole Sodium (Protonix) 40 mg IVP DAILY [facility] Last Admin: 05/25/18 09:05 Dose: 40 mg Potassium Chloride (Klor-Con) 40 meq PO 1145 [facility] Stop: 05/25/18 13:45 Last Admin: 05/25/18 12:03 Dose: 40 meq Sodium Bicarbonate (Bicarbonate, Sodium) 650 mg PER TUBE .PER PROTOCOL PRN PRN Reason: ENTERAL TUBE OCCLUSION Sodium Chloride (Flush - Normal Saline) 10 ml IVF Q12HR [facility] Last Admin: 05/25/18 09:05 Dose: 10 ml Sodium Chloride (Flush - Normal Saline) 10 ml IVF PRN PRN PRN Reason: Saline Flush
[2018-05-26] MEDS: Furosemide 40 MG/4 ML VIAL SLOW IVP SCH (06:26)
[2018-05-26 06:54] LABS: Magnesium 2.1 mg/dL (1.6-2.6); Phosphorus 2.1 mg/dL (2.3-4.7)
[2018-05-26 06:55] LABS: Anion Gap 11 mmol/L (10-20); BUN (Urea Nitrogen) 16 mg/dL (8.4-25.7); Calc. Creatinine Clearance 127 mL/min (70-130); Calcium 7.5 mg/dL (7.8-10.44); Carbon Dioxide 28 mmol/L (22-29); Chloride 102 mmol/L (98-107); Estimated GFR-MDRD Greater than 90; Glucose 113 mg/dL (70-105); Sodium 138 mmol/L (136-145)
[2018-05-26 07:04] LABS: Potassium 2.7 mmol/L (3.5-5.1)
[2018-05-26] MEDS ORDERED: Loratadine 10 MG TAB PO PRN (07:28)
[2018-05-26] MEDS ORDERED: Sodium Chloride 0.65% Nasal 44 ML BOT EA NARE PRN (07:28)
[2018-05-26] MEDS ORDERED: Acetaminophen 500 MG TAB PO PRN (07:28)
[2018-05-26] MEDS ORDERED: hydrALAZINE 20 MG/ML VIAL SLOW IVP PRN (07:28)
[2018-05-26] MEDS ORDERED: Cepastat Lozenges 1 LOZ PO PRN (07:28)
[2018-05-26] MEDS ORDERED: Artificial Tears 18 DROP/0.9 ML EA EYE PRN (07:28)
[2018-05-26] MEDS ORDERED: Eucerin (Mineral Oil/Petrolatum,White) 30 gm Jar TOP PRN (07:28)
[2018-05-26] MEDS ORDERED: Diabetic Tussin 200 MG/10 ML UDCUP PO PRN (07:28)
[2018-05-26] MEDS ORDERED: Potassium Chloride 20 MEQ in Premix Bag 1 BAG IVPB SCH (08:15)
[2018-05-26] MEDS ORDERED: Potassium Phosphate 30 MMOL in Sodium Chloride 0.9% 500 ML IVPB SCH (08:15)
[2018-05-26] MEDS: Pantoprazole 40 MG VIAL IVP SCH (08:43)
[2018-05-26] MEDS ORDERED: Calcium Gluc 4.6 MEQ/10 ML (100 MG/ML) SLOW IVP SCH (11:00)
--- NOTE | 2018-05-26 11:05 | PRG ---
DATE OF SERVICE: 05/26/2018 SERVICE: Pulmonary Medicine. INTERVAL HISTORY: The patient has been weaned down to room air. He denies any current chest pain, fevers, or chills. He is breathing comfortably. He is tolerating p.o. and actually did really well with the swallow evaluation. He is requesting real food. PHYSICAL EXAMINATION: VITAL SIGNS: Afebrile. Pulse 81, blood pressure 105/68, respirations 16, and saturation 97% on room air. GENERAL: The patient is awake and alert, in no apparent distress. LUNGS: Excellent air entry. Dependent crackles are minimal. HEART: Normal rate and regular. ABDOMEN: Soft, nontender, and nondistended. Bowel sounds are positive. MUSCULOSKELETAL: No cyanosis or clubbing. There is no pitting in the bilateral lower extremities. NEUROLOGIC: Grossly nonfocal. LABORATORY DATA: Potassium 2.7. Basic metabolic profile is otherwise unremarkable. Calcium 7.5, magnesium 2.1, phosphorus 2.1. ASSESSMENT: 1. Acute hypoxic respiratory failure. 2. Metabolic encephalopathy, resolved. 3. Cirrhosis, advanced. 4. Community-acquired pneumonia secondary to Pseudomonas. 5. Alcohol abuse. DISCUSSION AND PLAN: I will replace the calcium, phosphorus, and potassium today. I will back off on Lasix to once daily. NG tube will be removed and we will advance his diet if tolerated. We will titrate the lactulose to 3 bowel movements on a daily basis. I will enlist the help of physical therapy to mobilize the patient. From a purely respiratory standpoint, the patient is stable for transition out of the hospital. He will need a 5-day course of the Levaquin. Job ID: [id number] [facility]
--- NOTE | 2018-05-26 13:48 | PDOC.PN ---
- Subjective Encounter Start Date: 05/26/18 Encounter Start Time: 10:00 Patient seen and examined. No new complaints. No overnight events - Objective Resuscitation Status - Order Detail: 05/20/18 15:11 Resuscitation Status Routine Resuscitation Status: DNAR: NO Resuscitation Discussed with: Palliative Care discussion with and Family MAR Reviewed: Yes Vital Signs & Weight: Vital Signs (12 hours) Temp Pulse Resp BP Pulse Ox 05/26/18 11:44 98.7 F 83 16 103/65 97 05/26/18 08:00 97.8 F 81 16 105/68 97 05/26/18 04:00 98.3 F 83 18 99/64 94 L Weight Admit Weight 187 lb Weight 187 lb 13.341 oz Most Recent Monitor Data Heart Rate from ECG 82 NIBP 108/62 NIBP BP-Mean 77 Respiration from ECG 29 SpO2 94 I&O: 05/25/18 05/26/18 05/27/18 06:59 06:59 06:59 Intake Total 2991 2145 30 Output Total 2107 2634 Balance 884 -489 30 Result Diagrams: 05/24/18 04:50 05/26/18 04:30 Phys Exam - Physical Examination Constitutional: NAD HEENT: PERRLA icterus+ Neck: no JVD, supple Respiratory: no wheezing, no rales, no rhonchi Cardiovascular: RRR, no significant murmur ascites+ Musculoskeletal: no edema, pulses present Neurological: non-focal, normal sensation Lymphatic: no nodes Psychiatric: normal affect Skin: no rash, normal turgor Dx/Plan (1) Acute hepatic encephalopathy Code(s): K72.00 - ACUTE AND SUBACUTE HEPATIC FAILURE WITHOUT COMA Status: Acute (2) Acute respiratory failure with hypoxemia Code(s): J96.01 - ACUTE RESPIRATORY FAILURE WITH HYPOXIA Status: Acute Comment: Intubated and Sedated (3) Metabolic acidosis Code(s): E87.2 - ACIDOSIS Status: Acute (4) Thrombocytopenia Code(s): D69.6 - THROMBOCYTOPENIA, UNSPECIFIED Status: Acute (5) Cirrhosis of liver Code(s): K74.60 - UNSPECIFIED CIRRHOSIS OF LIVER Status: Chronic (6) Obesity (BMI 30-39.9) Code(s): E66.9 - OBESITY, UNSPECIFIED Status: Chronic (7) Hypokalemia Code(s): E87.6 - HYPOKALEMIA Status: Acute (8) Hypophosphatemia Code(s): E83.39 - OTHER DISORDERS OF PHOSPHORUS METABOLISM Status: Acute (9) Ileus Code(s): K56.7 - ILEUS, UNSPECIFIED Status: Acute - Plan cont current plan of care, plan discussed w/ family, continue antibiotics * DC NG tube * start diet * change protonix PO * medication reviewed as below * symptomatic treatment. * continue levaquin * start PT/OT Review of Systems - Review of Systems ENT: negative: Ear Pain, Ear Discharge, Nose Pain, Nose Discharge, Nose Congestion, Mouth Pain, Mouth Swelling, Throat Pain, Throat Swelling, Other Respiratory: negative: Cough, Dry, Shortness of Breath, Hemoptysis, SOB with Excertion, Pleuritic Pain, Sputum, Wheezing Cardiovascular: negative: chest pain, palpitations, orthopnea, paroxysmal nocturnal dyspnea, edema, light headedness, other Gastrointestinal: negative: Nausea, Vomiting, Abdominal Pain, Diarrhea, Constipation, Melena, Hematochezia, Other Genitourinary: negative: Dysuria, Frequency, Incontinence, Hematuria, Retention , Other Musculoskeletal: negative: Neck Pain, Shoulder Pain, Arm Pain, Back Pain, Hand Pain, Leg Pain, Foot Pain, Other - Medications/Allergies Allergies/Adverse Reactions: Allergies Allergy/AdvReac Type Severity Reaction Status Date / Time No Allergy Information Allergy Verified 05/17/18 18:57 Available Medications: Current Medications Acetaminophen (Tylenol Elixir) 650 mg PER TUBE Q4H PRN PRN Reason: Headache/Fever or Pain Last Admin: 05/24/18 12:30 Dose: 650 mg Acetaminophen (Tylenol) 500 mg PO Q6H PRN PRN Reason: Mild Pain (1-3) Furosemide (Lasix) 40 mg SLOW IVP 0600 [facility] Furosemide (Lasix) 40 mg PO DAILY-AC [facility] Guaifenesin (Robitussin Sf) 200 mg PO Q4H PRN PRN Reason: Cough Hydralazine HCl (Apresoline) 10 mg SLOW IVP Q4H PRN PRN Reason: SBP > 180 and HR < 70 Levofloxacin 750 mg/ Device 150 mls @ 100 mls/hr IVPB Q24HR [facility] Stop: 05/30/18 12:01 Last Admin: 05/26/18 12:29 Dose: 150 mls Potassium Phosphate 30 mmol/ (Sodium Chloride) 510 mls @ 83.3 mls/hr IVPB 0815 [facility] Stop: 05/26/18 14:23 Last Admin: 05/26/18 08:44 Dose: 510 mls Lactulose (Lactulose) 30 gm PO TID [facility] Loratadine (Claritin) 10 mg PO DAILYPRN PRN PRN Reason: Sinus Symptoms Discontinue Previous Narcotic Pain Medications And Benzodiazepines 1 each FS .ONE [facility] Stop: 06/16/18 19:16 Ondansetron HCl (Zofran Odt) 4 mg PO Q6H PRN PRN Reason: Nausea/Vomiting Ondansetron HCl (Zofran) 4 mg IVP Q6H PRN PRN Reason: Nausea/Vomiting Pantoprazole Sodium (Protonix) 40 mg PO DAILY [facility] Potassium Chloride (Klor-Con) 40 meq PO Q4H [facility] Stop: 05/26/18 19:01 Last Admin: 05/26/18 12:30 Dose: 40 meq Sodium Chloride (Flush - Normal Saline) 10 ml IVF Q12HR [facility] Last Admin: 05/26/18 08:48 Dose: 10 ml Sodium Chloride (Flush - Normal Saline) 10 ml IVF PRN PRN PRN Reason: Saline Flush Sodium Chloride ([place] Nasal [place] 0.65%) 0 ml EA NARE QIDPRN PRN PRN Reason: Nasal Congestion Spironolactone (Aldactone) 25 mg PO QAM-[facility] Throat Lozenges (Cepastat Lozenges) 1 alex PO Q2H PRN PRN Reason: Sore Throat
[2018-05-27] MEDS: Furosemide 40 MG/4 ML VIAL SLOW IVP SCH (05:44)
[2018-05-27] MEDS: Spironolactone 25 MG TAB PO SCH (09:06)
[2018-05-27 09:07] LABS: #Eosinphils 0.2 thou/uL (0.0-0.7); #Lymphocytes 0.9 thou/uL (1.20-3.40); #Monocytes 0.6 thou/uL (0.11-0.59); #Neutrophils 3.6 thou/uL (1.40-6.50); %Basophils 0.3 % (0.0-1.0); %Eosinophils 3.4 % (0.0-10.0); %Lymphocytes 16.9 % (21.0-51.0); %Monocytes 12.1 % (0.0-10.0); %Neutrophils 67.2 % (42.0-75.0); Hemoglobin 11.7 g/dL (14.0-18.0); Mean Corpuscular HGB CONC 34.1 g/dL (32.0-36.0); Mean Corpuscular Hemoglobin 33.6 pg (27.0-31.0); Mean Corpuscular Volume 98.3 fL (78.0-98.0); Mean Platelet Volume 8.4 fL (7.4-10.4); Platelet Count 64 thou/uL (130-400); RBC Distribution Width 15.6 % (11.5-14.5); Red Blood Cell (RBC) Count 3.48 mill/uL (4.70-6.10); White Blood Cell (WBC) Count 5.3 thou/uL (4.8-10.8)
[2018-05-27] MEDS: Furosemide 40 MG TAB PO SCH (09:11)
[2018-05-27 09:15] LABS: INR-International Normal Ratio 2.1; Prothrombin Time 23.2 SEC (12.0-14.7)
[2018-05-27 09:32] LABS: ALT (SGPT) 58 U/L (8-55); AST (SGOT) 135 U/L (5-34); Albumin 2.4 g/dL (3.5-5.0); Alkaline Phosphatase 110 U/L (40-150); Bilirubin, Direct 7.4 mg/dL (0.1-0.3); Bilirubin, Total 11.8 mg/dL (0.2-1.2); Protein, Total 5.6 g/dL (6.0-8.3)
--- NOTE | 2018-05-27 11:06 | PDOC.PN ---
- Subjective Encounter Start Date: 05/27/18 Encounter Start Time: 09:40 Patient seen and examined. No new complaints. No overnight events - Objective Resuscitation Status - Order Detail: 05/20/18 15:11 Resuscitation Status Routine Resuscitation Status: DNAR: NO Resuscitation Discussed with: Palliative Care discussion with and Family MAR Reviewed: Yes Vital Signs & Weight: Vital Signs (12 hours) Temp Pulse Resp BP Pulse Ox 05/27/18 07:54 98.4 F 76 16 95/59 L 96 Weight Admit Weight 187 lb Weight 187 lb 13.341 oz Most Recent Monitor Data Heart Rate from ECG 82 NIBP 108/62 NIBP BP-Mean 77 Respiration from ECG 29 SpO2 94 I&O: 05/26/18 05/27/18 05/28/18 06:59 06:59 06:59 Intake Total 2145 810 Output Total 2634 800 Balance -489 10 Result Diagrams: 05/27/18 08:56 05/26/18 04:30 Phys Exam - Physical Examination Constitutional: NAD HEENT: PERRLA, moist MMs icterus+ Neck: no JVD, supple Respiratory: no wheezing, no rales, no rhonchi Cardiovascular: RRR, no significant murmur, no rub Gastrointestinal: soft ascites+ Musculoskeletal: no edema, pulses present Neurological: non-focal, normal sensation Lymphatic: no nodes Psychiatric: normal affect Skin: no rash, normal turgor Dx/Plan (1) Acute hepatic encephalopathy Code(s): K72.00 - ACUTE AND SUBACUTE HEPATIC FAILURE WITHOUT COMA Status: Acute (2) Acute respiratory failure with hypoxemia Code(s): J96.01 - ACUTE RESPIRATORY FAILURE WITH HYPOXIA Status: Acute Comment: Intubated and Sedated (3) Metabolic acidosis Code(s): E87.2 - ACIDOSIS Status: Acute (4) Thrombocytopenia Code(s): D69.6 - THROMBOCYTOPENIA, UNSPECIFIED Status: Acute (5) Cirrhosis of liver Code(s): K74.60 - UNSPECIFIED CIRRHOSIS OF LIVER Status: Chronic (6) Obesity (BMI 30-39.9) Code(s): E66.9 - OBESITY, UNSPECIFIED Status: Chronic (7) Hypokalemia Code(s): E87.6 - HYPOKALEMIA Status: Acute (8) Hypophosphatemia Code(s): E83.39 - OTHER DISORDERS OF PHOSPHORUS METABOLISM Status: Acute (9) Ileus Code(s): K56.7 - ILEUS, UNSPECIFIED Status: Acute - Plan cont current plan of care, plan discussed w/ family, continue antibiotics * THOMAS Jiang * start PT * repeat labs tomorrow * medication reviewed as below * symptomatic treatment * discussed with family * expecting discharge in 24-48 hours * continue levaquin. Review of Systems - Review of Systems ENT: negative: Ear Pain, Ear Discharge, Nose Pain, Nose Discharge, Nose Congestion, Mouth Pain, Mouth Swelling, Throat Pain, Throat Swelling, Other Respiratory: negative: Cough, Dry, Shortness of Breath, Hemoptysis, SOB with Excertion, Pleuritic Pain, Sputum, Wheezing Cardiovascular: negative: chest pain, palpitations, orthopnea, paroxysmal nocturnal dyspnea, edema, light headedness, other Gastrointestinal: negative: Nausea, Vomiting, Abdominal Pain, Diarrhea, Constipation, Melena, Hematochezia, Other Genitourinary: negative: Dysuria, Frequency, Incontinence, Hematuria, Retention , Other Musculoskeletal: negative: Neck Pain, Shoulder Pain, Arm Pain, Back Pain, Hand Pain, Leg Pain, Foot Pain, Other - Medications/Allergies Allergies/Adverse Reactions: Allergies Allergy/AdvReac Type Severity Reaction Status Date / Time No Allergy Information Allergy Verified 05/17/18 18:57 Available Medications: Current Medications Acetaminophen (Tylenol Elixir) 650 mg PER TUBE Q4H PRN PRN Reason: Headache/Fever or Pain Last Admin: 05/24/18 12:30 Dose: 650 mg Acetaminophen (Tylenol) 500 mg PO Q6H PRN PRN Reason: Mild Pain (1-3) Furosemide (Lasix) 40 mg SLOW IVP 0600 [facility] Last Admin: 05/27/18 05:44 Dose: 40 mg Furosemide (Lasix) 40 mg PO DAILY-AC [facility] Last Admin: 05/27/18 09:11 Dose: Not Given Guaifenesin (Robitussin Sf) 200 mg PO Q4H PRN PRN Reason: Cough Hydralazine HCl (Apresoline) 10 mg SLOW IVP Q4H PRN PRN Reason: SBP > 180 and HR < 70 Levofloxacin 750 mg/ Device 150 mls @ 100 mls/hr IVPB Q24HR [facility] Stop: 05/30/18 12:01 Last Admin: 05/26/18 12:29 Dose: 150 mls Lactulose (Lactulose) 30 gm PO TID [facility] Last Admin: 05/27/18 09:06 Dose: 30 gm Loratadine (Claritin) 10 mg PO DAILYPRN PRN PRN Reason: Sinus Symptoms Discontinue Previous Narcotic Pain Medications And Benzodiazepines 1 each FS .ONE [facility] Stop: 06/16/18 19:16 Ondansetron HCl (Zofran Odt) 4 mg PO Q6H PRN PRN Reason: Nausea/Vomiting Ondansetron HCl (Zofran) 4 mg IVP Q6H PRN PRN Reason: Nausea/Vomiting Pantoprazole Sodium (Protonix) 40 mg PO DAILY [facility] Last Admin: 05/27/18 09:06 Dose: 40 mg Sodium Chloride (Flush - Normal Saline) 10 ml IVF Q12HR [facility] Last Admin: 05/27/18 09:07 Dose: Not Given Sodium Chloride (Flush - Normal Saline) 10 ml IVF PRN PRN PRN Reason: Saline Flush Sodium Chloride ([place] Nasal [place] 0.65%) 0 ml EA NARE QIDPRN PRN PRN Reason: Nasal Congestion Spironolactone (Aldactone) 25 mg PO QAM-WM [facility] Last Admin: 05/27/18 09:06 Dose: 25 mg Throat Lozenges (Cepastat Lozenges) 1 alex PO Q2H PRN PRN Reason: Sore Throat
[2018-05-28] MEDS: Furosemide 40 MG/4 ML VIAL SLOW IVP SCH (05:06)
[2018-05-28 07:49] LABS: Potassium 3.5 mmol/L (3.5-5.1)
[2018-05-28] MEDS: Furosemide 40 MG TAB PO SCH (08:14)
[2018-05-28] MEDS: Spironolactone 25 MG TAB PO SCH (08:16)
--- NOTE | 2018-05-28 09:59 | PDOC.PN ---
- Subjective Encounter Start Date: 05/28/18 Encounter Start Time: 09:20 Patient seen and examined. No new complaints. No overnight events - Objective Resuscitation Status - Order Detail: 05/20/18 15:11 Resuscitation Status Routine Resuscitation Status: DNAR: NO Resuscitation Discussed with: Palliative Care discussion with and Family MAR Reviewed: Yes Vital Signs & Weight: Vital Signs (12 hours) Temp Pulse Resp BP BP Pulse Ox 05/28/18 08:00 90 L 05/28/18 07:34 98 F 72 18 93/58 L 90 L 05/28/18 04:00 97.7 F 75 16 97/61 92 L 05/28/18 00:00 97.5 F L 77 16 92/55 L 95 Weight Admit Weight 187 lb Weight 187 lb 13.341 oz Most Recent Monitor Data Heart Rate from ECG 82 NIBP 108/62 NIBP BP-Mean 77 Respiration from ECG 29 SpO2 94 I&O: 05/27/18 05/28/18 05/29/18 06:59 06:59 06:59 Intake Total 810 1884 Output Total 800 2700 Balance 10 -816 Result Diagrams: 05/27/18 08:56 05/28/18 07:14 Phys Exam - Physical Examination Constitutional: NAD HEENT: PERRLA, moist MMs icterus+ Neck: no JVD, supple Respiratory: no wheezing, no rales, no rhonchi Cardiovascular: RRR, no significant murmur, no rub Gastrointestinal: soft, positive bowel sounds Musculoskeletal: no edema, pulses present Neurological: non-focal, normal sensation Lymphatic: no nodes Psychiatric: normal affect Skin: no rash, normal turgor Dx/Plan (1) Acute hepatic encephalopathy Code(s): K72.00 - ACUTE AND SUBACUTE HEPATIC FAILURE WITHOUT COMA Status: Acute (2) Acute respiratory failure with hypoxemia Code(s): J96.01 - ACUTE RESPIRATORY FAILURE WITH HYPOXIA Status: Acute Comment: Intubated and Sedated (3) Metabolic acidosis Code(s): E87.2 - ACIDOSIS Status: Acute (4) Thrombocytopenia Code(s): D69.6 - THROMBOCYTOPENIA, UNSPECIFIED Status: Acute (5) Cirrhosis of liver Code(s): K74.60 - UNSPECIFIED CIRRHOSIS OF LIVER Status: Chronic (6) Obesity (BMI 30-39.9) Code(s): E66.9 - OBESITY, UNSPECIFIED Status: Chronic (7) Hypokalemia Code(s): E87.6 - HYPOKALEMIA Status: Acute (8) Hypophosphatemia Code(s): E83.39 - OTHER DISORDERS OF PHOSPHORUS METABOLISM Status: Acute (9) Ileus Code(s): K56.7 - ILEUS, UNSPECIFIED Status: Acute - Plan cont current plan of care, plan discussed w/ family, continue antibiotics, PT/OT * medication reviewed as below * symptomatic treatment * continue PT * continue levaquin * doing well * will discharge tomorrow if stable, repeat labs tomorrow. Review of Systems - Review of Systems ENT: negative: Ear Pain, Ear Discharge, Nose Pain, Nose Discharge, Nose Congestion, Mouth Pain, Mouth Swelling, Throat Pain, Throat Swelling, Other Respiratory: negative: Cough, Dry, Shortness of Breath, Hemoptysis, SOB with Excertion, Pleuritic Pain, Sputum, Wheezing Cardiovascular: negative: chest pain, palpitations, orthopnea, paroxysmal nocturnal dyspnea, edema, light headedness, other Gastrointestinal: negative: Nausea, Vomiting, Abdominal Pain, Diarrhea, Constipation, Melena, Hematochezia, Other Genitourinary: negative: Dysuria, Frequency, Incontinence, Hematuria, Retention , Other Musculoskeletal: negative: Neck Pain, Shoulder Pain, Arm Pain, Back Pain, Hand Pain, Leg Pain, Foot Pain, Other Skin: negative: Rash, Lesions, Akshat, Bruising, Other - Medications/Allergies Allergies/Adverse Reactions: Allergies Allergy/AdvReac Type Severity Reaction Status Date / Time No Allergy Information Allergy Verified 05/17/18 18:57 Available Medications: Current Medications Acetaminophen (Tylenol Elixir) 650 mg PER TUBE Q4H PRN PRN Reason: Headache/Fever or Pain Last Admin: 05/24/18 12:30 Dose: 650 mg Acetaminophen (Tylenol) 500 mg PO Q6H PRN PRN Reason: Mild Pain (1-3) Furosemide (Lasix) 40 mg SLOW IVP 0600 [facility] Last Admin: 05/28/18 05:06 Dose: Not Given Furosemide (Lasix) 40 mg PO DAILY-AC [facility] Last Admin: 05/28/18 08:14 Dose: Not Given Guaifenesin (Robitussin Sf) 200 mg PO Q4H PRN PRN Reason: Cough Hydralazine HCl (Apresoline) 10 mg SLOW IVP Q4H PRN PRN Reason: SBP > 180 and HR < 70 Levofloxacin 750 mg/ Device 150 mls @ 100 mls/hr IVPB Q24HR [facility] Stop: 05/30/18 12:01 Last Admin: 05/27/18 12:05 Dose: 150 mls Lactulose (Lactulose) 30 gm PO TID [facility] Last Admin: 05/28/18 08:16 Dose: Not Given Loratadine (Claritin) 10 mg PO DAILYPRN PRN PRN Reason: Sinus Symptoms Discontinue Previous Narcotic Pain Medications And Benzodiazepines 1 each FS .ONE [facility] Stop: 06/16/18 19:16 Ondansetron HCl (Zofran Odt) 4 mg PO Q6H PRN PRN Reason: Nausea/Vomiting Ondansetron HCl (Zofran) 4 mg IVP Q6H PRN PRN Reason: Nausea/Vomiting Pantoprazole Sodium (Protonix) 40 mg PO DAILY [facility] Last Admin: 05/28/18 08:15 Dose: 40 mg Sodium Chloride (Flush - Normal Saline) 10 ml IVF Q12HR [facility] Last Admin: 05/28/18 08:16 Dose: Not Given Sodium Chloride (Flush - Normal Saline) 10 ml IVF PRN PRN PRN Reason: Saline Flush Sodium Chloride ([place] Nasal [place] 0.65%) 0 ml EA NARE QIDPRN PRN PRN Reason: Nasal Congestion Spironolactone (Aldactone) 25 mg PO QAM-WM [facility] Last Admin: 05/28/18 08:16 Dose: 25 mg Throat Lozenges (Cepastat Lozenges) 1 alex PO Q2H PRN PRN Reason: Sore Throat
[2018-05-29] MEDS: Furosemide 40 MG/4 ML VIAL SLOW IVP SCH (05:51)
[2018-05-29 08:19] LABS: ALT (SGPT) 67 U/L (8-55); AST (SGOT) 167 U/L (5-34); Albumin 2.2 g/dL (3.5-5.0); Alkaline Phosphatase 108 U/L (40-150); Anion Gap 11 mmol/L (10-20); BUN (Urea Nitrogen) 10 mg/dL (8.4-25.7); Bilirubin, Total 11.8 mg/dL (0.2-1.2); Calc. Creatinine Clearance 117 mL/min (70-130); Calcium 7.7 mg/dL (7.8-10.44); Carbon Dioxide 23 mmol/L (22-29); Chloride 103 mmol/L (98-107); Estimated GFR-MDRD Greater than 90; Globulin 3.3 g/dL (2.4-3.5); Glucose 100 mg/dL (70-105); Potassium 3.3 mmol/L (3.5-5.1); Protein, Total 5.5 g/dL (6.0-8.3); Sodium 134 mmol/L (136-145)
[2018-05-29 08:22] LABS: #Eosinphils 0.2 thou/uL (0.0-0.7); #Lymphocytes 0.6 thou/uL (1.20-3.40); #Monocytes 0.5 thou/uL (0.11-0.59); #Neutrophils 2.3 thou/uL (1.40-6.50); %Basophils 0.6 % (0.0-1.0); %Eosinophils 4.3 % (0.0-10.0); %Lymphocytes 17.9 % (21.0-51.0); %Monocytes 12.9 % (0.0-10.0); %Neutrophils 64.3 % (42.0-75.0); Hemoglobin 11.2 g/dL (14.0-18.0); Mean Corpuscular HGB CONC 35.1 g/dL (32.0-36.0); Mean Corpuscular Hemoglobin 34.6 pg (27.0-31.0); Mean Corpuscular Volume 98.7 fL (78.0-98.0); Mean Platelet Volume 7.4 fL (7.4-10.4); Platelet Count 85 thou/uL (130-400); RBC Distribution Width 15.7 % (11.5-14.5); Red Blood Cell (RBC) Count 3.25 mill/uL (4.70-6.10); White Blood Cell (WBC) Count 3.5 thou/uL (4.8-10.8)
[2018-05-29] MEDS: Furosemide 40 MG TAB PO SCH (08:53)
[2018-05-29] MEDS: Spironolactone 25 MG TAB PO SCH (08:53)
[2018-05-29] MEDS ORDERED: Potassium Chloride 20 MEQ TAB PO SCH (09:45)
--- NOTE | 2018-05-29 10:28 | DIS ---
DATE OF ADMISSION: 05/17/2018 DATE OF DISCHARGE: 05/29/2018 PRIMARY CARE PHYSICIAN: Dre Pradhan. DISCHARGE DISPOSITION: Home. PRIMARY DISCHARGE DIAGNOSES: 1. Acute respiratory failure with hypoxia, resolved. 2. Acute hepatic encephalopathy. 3. Hypokalemia. 4. Hypophosphatemia. 5. Pneumonia due to Pseudomonas. 6. Metabolic acidosis. 7. Sepsis with acute organ dysfunction. 8. Ileus due to sepsis. 9. Thrombocytopenia. 10. Hyperkalemia on admission and subsequently hypokalemia. SECONDARY DISCHARGE DIAGNOSES: Cirrhosis of liver, obesity with BMI 33. PRIMARY PROCEDURE/OPERATION: Endotracheal intubation and mechanical ventilatory support, received central line placement. RADIOLOGICAL INVESTIGATION: The patient had several chest x-ray. SIGNIFICANT LABORATORY DATA: WBC 3.5, hemoglobin 11.2, platelet 85. INR 2.1. Sodium 134, potassium 3.3, BUN 10, creatinine 0.87, calcium 7.7, AST 167, ALT 67, alkaline phosphatase 108, albumin 2.2. Urinalysis suggestive of UTI. Urine drug screen negative. Blood culture negative. Sputum culture grew Pseudomonas. DISCHARGE MEDICATIONS: 1. Flomax 0.4 mg p.o. daily. 2. Vitamin B12 of 1000 mcg p.o. daily. 3. Folic acid 1 mg daily. 4. Lasix 40 mg daily. 5. Lactulose 30 g p.o. t.i.d. as directed. 6. Levaquin 500 mg p.o. daily. 7. Protonix 40 mg p.o. daily. 8. Aldactone 25 mg p.o. daily. 9. Thiamine 100 mg p.o. daily. CONTRAINDICATION: None. CODE STATUS: DNR. INPATIENT FRETTED INSTRUMENT MAKER HAND: 1. Dr. Pham was following while in hospital for respiratory failure. 2. Dr. Baker was following while in the hospital. 3. Dr. Garrett was following for liver failure. TEST RESULTS PENDING ON DISCHARGE: None. ALLERGIES: NO KNOWN DRUG ALLERGIES. DISCHARGE PLAN: Posthospital, the patient will follow up with primary care physician in 1 week. The patient will follow up with above-mentioned alliance consultant as directed. HOSPITAL COURSE: A 52-year-old male, who has underlying cirrhosis of liver, who was brought to hospital for altered mental status on May 17, 2018. On admission, the patient was having acute hepatic encephalopathy, sepsis, as well as ileus. He required intubation because he was not protecting his airway. He was admitted in ICU. [facility] was managing ventilator. His infection was treated with antibiotic therapy with levofloxacin. His sputum culture grew Pseudomonas. Initially, the patient had ileus and that is why required NG tube with low intermittent suction, but subsequently once sepsis is under control, his ileus resolved and we started diet. For hepatic encephalopathy, he required lactulose. Over next few days, the patient's condition slowly improved and he was extubated and subsequently transferred to medical floor. After extubation, the patient continued to do much better and he was able to walk by himself. He is tolerating p.o. well. While in hospital, he had significant electrolyte abnormality that was also corrected. 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 While in hospital, we had discussion with family member about goal of care and the patient was made DNR. The patient is seen and examined at bedside today. Plan of care discussed with the family member. PHYSICAL EXAMINATION: VITAL SIGNS: Currently, temperature 97.6, pulse 68, respiratory rate 16, saturation 92% on room air, and blood pressure 93/57. Weight 187 pounds. GENERAL: The patient is currently alert, awake, in no obvious acute distress. HEENT: Head; normocephalic and atraumatic. Eyes, icterus noted. NECK: Supple. No JVD. LUNGS: Clear to auscultation without any rhonchi. CARDIAC: S1 and S2 regular without any murmur. ABDOMEN: Soft and benign without any tenderness. EXTREMITIES: No edema. NEUROLOGIC: Nonfocal examination. No asterixis. REVIEW OF SYSTEMS: All review of systems reviewed with him and negative. DIETARY INSTRUCTION AND DISCHARGE INSTRUCTION: Given. Job ID: [id number]
[2018-05-29 11:30] VITALS: BP 93/58; TEMP 97.9
--- NOTE | 2018-05-30 22:59 | EKG ---
Test Reason : Blood Pressure : / mmHG Vent. Rate : 076 BPM Atrial Rate : 076 BPM P-R Int : 144 ms QRS Dur : 088 ms QT Int : 410 ms P-R-T Axes : 027 -35 007 degrees QTc Int : 461 ms Normal sinus rhythm Left axis deviation Minimal voltage criteria for LVH, may be normal variant Abnormal ECG Confirmed by TOPHER CRAVEN, ANGELIKA ([id number]), publishing editor MARK KLEIN ([id number]) on 05/30/2018 10:58:34 PM Referred By: Confirmed By:ANGELIKA OBANDO MD
== END 2018-05-29 13:29 | disposition home or self-care (01) | DRG 870 ==
LOC: ERS 14:14 → CCU 16:34 → T4-B 05-25 21:58
PROVIDERS: ADMIT Family Medicine; ATTEND Family Medicine
PROC: 5A1955Z Respiratory Ventilation, Greater than 96 Consecutive Hours (ICD-10-PCS; principal; 2018-05-17)
PROC: 02H633Z Insertion of Infusion Device into Right Atrium, Percutaneous Approach (ICD-10-PCS; 2018-05-17)
DX: A41.9 Sepsis, unspecified organism (principal); J96.01 Acute respiratory failure with hypoxia; K72.01 Acute and subacute hepatic failure with coma; J15.1 Pneumonia due to Pseudomonas; E87.2 Acidosis; K56.7 Ileus, unspecified; D68.4 Acquired coagulation factor deficiency; D61.818 Other pancytopenia; Z66 Do not resuscitate; Z51.5 Encounter for palliative care; R65.20 Severe sepsis without septic shock; E87.5 Hyperkalemia; K74.60 Unspecified cirrhosis of liver; E87.6 Hypokalemia; E83.39 Other disorders of phosphorus metabolism; D69.6 Thrombocytopenia, unspecified; E66.9 Obesity, unspecified; Z68.30 Body mass index [BMI] 30.0-30.9, adult; Z79.899 Other long term (current) drug therapy
CPT/HCPCS: 36415; 36416; 36556; 71045; 80048; 80053; 80076; 80306; 80307; 81003; 81015; 82140; 82550; 82607; 82746; 82805; 83690; 83735; 83880; 84100; 84132; 84443; 84484; 85025; 85610; 85730; 86850; 86900; 86901; 87040; 87070; 87077; 87186; 87205; 89220; 90471; 90686; 93005; 94003; 94760; 96361; 96365; 96366; 96368; 96375; 96376; C9113; G0008; J0696; J1815; J1940; J1956; J2060; J2270; J2354; J2765; J3010; J3475; J3480; J7050; P9047